=== PATIENT | male | born 1975 | race African-American/Black ===

== ENCOUNTER 2016-04-23 10:06 | Inpatient (IN) | payer OTHER ==
[~2016-04-23] VITALS: Ht 177.8 cm; Wt 94.2 kg
[2016-04-23] VITALS (21 sets, daily range): BP systolic 137–171; BP diastolic 87–108; PULSE 86–127; RESP 16–20; TEMP 97.2–98.8; O2SAT 91–100
[~2016-04-23 10:06] MED LIST: IBUP-238 PO; LORT5TAB PO; Z.0.NO CURRENT MEDS
[2016-04-23] MEDS ORDERED: SODIUM CHLOR 0.9% 1000 ML INJ 1,000 ML IV SCH (10:14)
[2016-04-23] MEDS ORDERED: PROPOFOL 1000 MG/100 ML INJ 100 ML ONE (10:14)
[2016-04-23] MEDS ORDERED: ETOMIDATE 20 MG/10 ML VIAL IV PUSH ONE (10:15)
[2016-04-23] MEDS ORDERED: SODIUM CHLORIDE 0.9% FLUSH 5 ML FLUSH IVF PRN (10:15)
[2016-04-23] MEDS ORDERED: SUCCINYLCHOLINE CHLORIDE 200 MG/10 ML VIAL IV PUSH ONE (10:15)
[2016-04-23 10:33] LABS: AUTOMATED NEUTROPHIL # 8.6 TH/MM3 (1.8-7.7); BASOPHIL % 0.1 % (0.0-2.0); EOSINOPHIL % 0.3 % (0.0-4.0); HEMATOCRIT 51.4 % (39.0-51.0); HEMO FLAGS DIFF FINAL; LYMPH % 19.7 % (9.0-44.0); LYMPHOCYTE # 2.3 TH/MM3 (1.0-4.8); MEAN CELL VOLUME 83.4 FL (80.0-100.0); MEAN CORPUSCULAR HEMOGLOBIN 27.1 PG (27.0-34.0); MEAN CORPUSCULAR HGB CONC 32.5 % (32.0-36.0); MONO % 4.3 % (0.0-8.0); NEUT % 75.6 % (16.0-70.0); PLATELET COUNT 289 TH/MM3 (150-450); RED BLOOD COUNT 6.15 MIL/MM3 (4.50-5.90); RED CELL DISTRIBUTION WIDTH 13.5 % (11.6-17.2); WHITE BLOOD COUNT 11.4 TH/MM3 (4.0-11.0)
--- NOTE | 2016-04-23 10:35 | PD ---
HPI Chief Complaint: unresponsive Time Seen by Provider: 10:14 Travel History International Travel<30 days: No Contact w/Intl Traveler<30days: No Traveled to known affect area: No History of Present Illness HPI 40-year-old male was found by his family members this morning unresponsive. They called 911. When EMS arrived patient's GCS was 3. Patient was given 1 mg of Narcan with no response. As per the family members he was drinking last night. Other than that not much history was obtained. Patient remained unresponsive with a GCS of 3 entire en route. Vital signs were otherwise stable. Patient obviously was in no condition to give any meaningful history. PFSH Past Medical History Narrative Medical Unknown past medical history Social History Alcohol Use: No Tobacco Use: No Substance Use: No Allergies-Medications (Allergen,Severity, Reaction): Coded Allergies: No Known Allergies (Verified , 04/23/16) Comments Unknown Reported Meds & Prescriptions Reported Meds & Active Scripts Active No Active Prescriptions or Reported Medications Narrative Medication Unknown Review of Systems ROS Limitations: Unresponsive Except as stated in HPI: all other systems reviewed are Neg Physical Exam Exam Limitations: Altered Mental Status Narrative GENERAL: Unresponsive, spontaneous respirations, obese SKIN: Warm and dry. HEAD: Atraumatic. Normocephalic. EYES: Pupils equal and round. No scleral icterus. No injection or drainage. ENT: No nasal bleeding or discharge. Mucous membranes pink and moist. Gold caps on multiple teeth NECK: Trachea midline. No JVD. CARDIOVASCULAR: Regular rate and rhythm. No murmur appreciated. RESPIRATORY: No accessory muscle use. Clear to auscultation. Breath sounds equal bilaterally. GASTROINTESTINAL: Abdomen soft, non-tender, nondistended. Hepatic and splenic margins not palpable. MUSCULOSKELETAL: No obvious deformities. No clubbing. No cyanosis. No edema. NEUROLOGICAL: GCS of 3 PSYCHIATRIC: Unable to assess Data Data Last Documented VS Vital Signs Date Time Temp Pulse Resp B/P Pulse Ox O2 Delivery O2 Flow Rate FiO2 04/23/16 11:30 102 20 143/108 99 Ventilator 50 04/23/16 11:21 97.2 Orders Electrocardiogram (04/23/16 ) Propofol 1000 Mg/100 Ml Inj (Diprivan 10 (04/23/16 10:14) Alcohol (Ethanol) (04/23/16 10:14) Complete Blood Count With Diff (04/23/16 10:14) Comprehensive Metabolic Panel (04/23/16 10:14) Creatine Kinase (Cpk) (04/23/16 10:14) Drug Screen, Random Urine (04/23/16 10:14) Prothrombin Time / Inr (Pt) (04/23/16 10:14) Salicylates (Aspirin) (04/23/16 10:14) Troponin I (04/23/16 10:14) Tylenol (Acetaminophen) (04/23/16 10:14) Thyroid Stimulating Hormone (04/23/16 10:14) Lactic Acid Sepsis Protocol (04/23/16 10:14) Urinalysis - C+S If Indicated (04/23/16 10:14) Arterial Blood Gas (Abg) (04/23/16 10:14) Chest, Single Ap (04/23/16 10:14) Ct Brain W/O Iv Contrast(Rout) (04/23/16 10:14) Blood Glucose (04/23/16 10:14) Ecg Monitoring (04/23/16 10:14) Iv Access Insert/Monitor (04/23/16 10:14) Oximetry (04/23/16 10:14) Sodium Chloride 0.9% Flush (Ns Flush) (04/23/16 10:15) Sodium Chlor 0.9% 1000 Ml Inj (Ns 1000 M (04/23/16 10:14) Succinylcholine Inj (Quelicin Inj) (04/23/16 10:15) Etomidate Inj (Amidate Inj) (04/23/16 10:15) Propofol 1000 Mg/100 Ml Inj (Diprivan 10 (04/23/16 10:15) ^ Infusion (04/23/16 10:14) RASS (04/23/16 10:14) Neurological Rass Scale OLIVERIO.Q2H (04/23/16 10:14) ^ Orogastric Tube (04/23/16 10:14) Urinary Catheter Insert/Apply (04/23/16 10:14) CKMB (04/23/16 10:21) CKMB% (04/23/16 10:21) Admit Order (Ed Use Only) (04/23/16 11:40) Labs Laboratory Tests Test 04/23/16 04/23/16 10:21 11:03 White Blood Count 11.4 TH/MM3 Red Blood Count 6.15 MIL/MM3 Hemoglobin 16.7 GM/DL Hematocrit 51.4 % Mean Corpuscular Volume 83.4 FL Mean Corpuscular Hemoglobin 27.1 PG Mean Corpuscular Hemoglobin 32.5 % Concent Red Cell Distribution Width 13.5 % Platelet Count 289 TH/MM3 Mean Platelet Volume 7.7 FL Neutrophils (%) (Auto) 75.6 % Lymphocytes (%) (Auto) 19.7 % Monocytes (%) (Auto) 4.3 % Eosinophils (%) (Auto) 0.3 % Basophils (%) (Auto) 0.1 % Neutrophils # (Auto) 8.6 TH/MM3 Lymphocytes # (Auto) 2.3 TH/MM3 Monocytes # (Auto) 0.5 TH/MM3 Eosinophils # (Auto) 0.0 TH/MM3 Basophils # (Auto) 0.0 TH/MM3 CBC Comment DIFF FINAL Differential Comment Prothrombin Time 10.9 SEC Prothromb Time International 1.0 RATIO Ratio Urine Color COLORLESS Urine Turbidity CLEAR Urine pH 5.0 Urine Specific [place] 1.004 Urine Protein NEG mg/dL Urine Glucose (UA) NEG mg/dL Urine Ketones NEG mg/dL Urine Occult Blood NEG Urine Nitrite NEG Urine Bilirubin NEG Urine Urobilinogen LESS THAN 2.0 MG/DL Urine Leukocyte Esterase NEG Urine WBC LESS THAN 1 /hpf Microscopic Urinalysis Comment CATH-CULT NOT IND Sodium Level 142 MEQ/L Potassium Level 4.5 MEQ/L Chloride Level 107 MEQ/L Carbon Dioxide Level 25.0 MEQ/L Anion Gap 10 MEQ/L Blood Urea Nitrogen 8 MG/DL Creatinine 0.92 MG/DL Estimat Glomerular Filtration 111 ML/MIN Rate Random Glucose 114 MG/DL Lactic Acid Level 4.7 mmol/L Calcium Level 8.3 MG/DL Phosphorus Level 3.7 MG/DL Total Bilirubin 0.2 MG/DL Aspartate Amino Transf 26 U/L (AST/SGOT) Alanine Aminotransferase 36 U/L (ALT/SGPT) Alkaline Phosphatase 55 U/L Total Creatine Kinase 548 U/L Creatine Kinase MB 5.4 NG/ML Creatine Kinase MB % 1.0 % Troponin I LESS THAN 0.02 NG/ML Total Protein 9.4 GM/DL Albumin 3.9 GM/DL Thyroid Stimulating Hormone 0.653 uIU/ML 3rd Gen Salicylates Level 3.1 MG/DL Urine Opiates Screen NEG Acetaminophen Level LESS THAN 2.0 MCG/ML Urine Barbiturates Screen NEG Urine Amphetamines Screen NEG Urine Benzodiazepines Screen NEG Urine Cocaine Screen NEG Urine Cannabinoids Screen POS Ethyl Alcohol Level 356 MG/DL Blood Gas Puncture Site LT RADIAL Blood Gas Patient Temperature 98.6 Blood Gas HCO3 20 mmol/L Blood Gas Base Excess -6.0 mmol/L Blood Gas Oxygen Saturation 96 % Arterial Blood pH 7.25 Arterial Blood Partial 47 mmHg Pressure CO2 Arterial Blood Partial 494 mmHG Pressure O2 Arterial Blood Oxygen Content 24.1 Vol % Arterial Blood 1.5 % Carboxyhemoglobin Arterial Blood Methemoglobin 2.1 % Blood Gas Hemoglobin 17.0 G/DL Oxygen Delivery Device VENTILATOR Blood Gas Ventilator Setting VAC/600/16/PEEP5 Blood Gas Inspired Oxygen 100 % [facility] Medical Decision Making Medical Screen Exam Complete: Yes Emergency Medical Condition: Yes Medical Record Reviewed: Yes Interpretation(s) Twelve-lead EKG was reviewed by me. Normal sinus rhythm, right axis deviation, poor R-wave progression, nonspecific ST-T wave changes, tachycardia. Heart rate of 122 bpm. Differential Diagnosis Acute alcohol intoxication with coma, metabolic encephalopathy, intracranial bleed Narrative Course 11:24 AM I decided to intubate the patient given his poor GCS and hence to protect his airway. During intubation there was a strong alcohol odor from his breath. Patient is hemodynamically stable currently. CT scan of the head is within normal limits. CBC shows slight leukocytosis. Chest x-ray shows the ET tube and OG tube in good position. Blood gas is suggestive of metabolic acidosis. Patient does have a lactic acidosis which in my opinion is possibly from acute alcohol intoxication. Awaiting for the chemistry results. Awaiting for the alcohol level. Patient is to be admitted in the ICU. Awaiting for the auto suspension and steering mechanic to call back. 11:37 AM I just spoke with his family who were in the room. His mother and his 2 sisters are there. They said that they last saw him talking and awake at 12: 30 AM. He was in a green party at the house and had quite a few shots. Patient normally does not drink alcohol. This morning when they went to wake him up he was unarousable. That's when they called 911. I explained to them his condition and answered all their questions to the best of my ability. I spoke with the auto suspension and steering mechanic who has accepted the case. His ABG shows metabolic acidosis. I've asked the respiratory therapist to go up on the vent rate 20. Critical Care Narrative Aggregate critical care time was 45 minutes. Time to perform other separately billable procedures was not included in the critical care time. My time did not include minutes spent treating any other patients simultaneously or on activities that did not directly contribute to the patient's treatment. The services I provided to this patient were to treat and/or prevent clinically significant deterioration that could result in: Unresponsive, respiratory failure, ventilator management I provided critical care services requiring my management, as noted below: Chart data review, documentation time, medication orders and management, vital sign assessments/reviewing monitor data, ordering and reviewing lab tests, ordering and interpreting/reviewing x-rays and diagnostic studies, care of the patient and discussion of the patient with the admitting physicians. Procedures Procedure Narrative After the risks and benefits were discussed the following procedure was performed: INTUBATION: The patient was put in optimal position for the procedure. Rapid sequence intubation was initiated by me using 20 milligrams of etomidate IV and 100 milligrams of succinylcholine IV. The patient was intubated with a 7.5 cuffed endotracheal tube. Tube placement was confirmed by visualization of the tube and balloon passing through the cords, capnometry and subsequent chest x-ray. Breath sounds were equal and well aerated bilaterally postintubation. No breath sounds over stomach. Patient tolerated procedure well. EKG Prior to Arrival: No Physician Communication Physician Communication Dr. Walter Diagnosis Primary Impression: Unresponsive Additional Impressions: Acute alcohol intoxication Qualified Code: F10.129 - Acute alcohol intoxication, with unspecified complication Metabolic acidosis Respiratory failure Qualified Code: J96.01 - Acute respiratory failure with hypoxia Admitting Information Admitting Physician Requests: Admit Scripts No Active Prescriptions or Reported Rodericks Mekhi Amezquita MD Apr 23, 2016 10:14
[2016-04-23 10:38] LABS: BLOOD, URINE NEG (NEG); COMMENT (UR) CATH-CULT NOT IND; CULTURE IF INDICATED CATH CULTURE NOT IND; GLUCOSE,URINE NEG (NEG); KETONE, URINE NEG (NEG); NITRITE,URINE NEG (NEG); URINE COLOR COLORLESS (YELLW/STRAW)
[2016-04-23 10:46] LABS: AMPHETAMINE, URINE NEG (NEG); BARBITURATES, URINE NEG (NEG); COCAINE, URINE NEG (NEG); PROTHROMBIN TIME - PATIENT 10.9 SEC (9.8-11.6)
[2016-04-23] MEDS: PROPOFOL 1000 MG/100 ML INJ 100 ML IV SCH ×2 (10:54→21:19)
--- NOTE | 2016-04-23 10:58 | RADRPT ---
EXAM DATE/TIME: 04/23/2016 10:44 [facility] COMPARISON: No previous studies available for comparison. INDICATIONS : Altered mental status, unresposnsive today. RADIATION DOSE: 39.54 CTDIvol (mGy) MEDICAL HISTORY : None SURGICAL HISTORY : None. ENCOUNTER: Initial ACUITY: 1 day PAIN SCALE: Non-responsive LOCATION: Bilateral head TECHNIQUE: Multiple contiguous axial images were obtained of the head. Using automated exposure control and adj ustment of the mA and/or kV according to patient size, radiation dose was kept as low as reasonably a chievable to obtain optimal diagnostic quality images. FINDINGS: CEREBRUM: The ventricles are normal for age. No evidence of midline shift, mass lesion, hemorrhage or acute in farction. No extra-axial fluid collections are seen. POSTERIOR FOSSA: The cerebellum and brainstem are intact. The 4th ventricle is midline. The cerebellopontine angle i s unremarkable. EXTRACRANIAL: The visualized portion of the orbits is intact. Chronic sinus disease with mucoperiosteal thickening in the ethmoid air cells and a few retention cysts in the maxillary antra bilaterally. SKULL: The calvaria is intact. No evidence of skull fracture. CONCLUSION: 1. Chronic sinusitis. 2. Otherwise, no acute intracranial process. Conor Vidal MD on April 23, 2016 at 10:54 Board Certified Radiologist. This report was verified electronically.
[2016-04-23 11:12] LABS: ALKALINE PHOSPHATASE 55 U/L (45-117); ALT (GPT) 36 U/L (12-78); ANION GAP 10 MEQ/L (5-15); AST (GOT) 26 U/L (15-37); BLOOD UREA NITROGEN 8 MG/DL (7-18); CHLORIDE 107 MEQ/L (98-107); CREATINE KINASE 548 U/L (39-308); GLOMERULAR FILTRATION RATE 111 ML/MIN (>89); POTASSIUM 4.5 MEQ/L (3.5-5.1); SODIUM (NA) 142 MEQ/L (136-145); TOTAL BILIRUBIN ADULT 0.2 MG/DL (0.2-1.0)
[2016-04-23 11:13] LABS: ACETAMINOPHEN LESS THAN 2.0 MCG/ML (10.0-30.0)
[2016-04-23 11:14] LABS: BLOOD GAS CARBOXYHEMOGLOBIN 1.5 % (0-4); BLOOD GAS HCO3 20 mmol/L (22-26); BLOOD GAS METHEMOGLOBIN 2.1 % (0-2); BLOOD GAS O2 HGB SATURATION 96 % (90-100); BLOOD GAS OXYGEN CONTENT 24.1 Vol % (12.0-20.0); BLOOD GAS PCO2 47 mmHg (38-42); BLOOD GAS PO2 494 mmHG (61-120); CRITICAL VALUE YES; DRAW SITE LT RADIAL; FIO2 100 %; NUMBER OF ARTERIAL PUNCTURES 1; OXYGEN DEVICE VENTILATOR; TEMP CORR TO 98.6; ULNAR PULSE PRESENT; VENT SETTINGS VAC/600/16/PEEP5
[2016-04-23 11:15] LABS: STAT YES
[2016-04-23 11:43] LABS: CKMB 5.4 NG/ML (0.5-3.6)
--- NOTE | 2016-04-23 11:44 | RADRPT ---
EXAM DATE/TIME: 04/23/2016 11:03 [facility] COMPARISON: No previous studies available for comparison. INDICATIONS: Short of breath, syncope, unresponsive MEDICAL HISTORY: None. SURGICAL HISTORY: None. ENCOUNTER: Initial ACUITY: 1 day PAIN SCORE: Non-responsive. LOCATION: Bilateral chest FINDINGS: ET tube, nasogastric tube are in good position. Lungs are clear. Heart and pulmonary vascularity ar e normal. The portion of the bony skeleton visualized is unremarkable. CONCLUSION: 1. Support apparatus in good position. 2. Lungs are clear. Paddy Goldstein MD FACR on April 23, 2016 at 11:32 Board Certified Radiologist. This report was verified electronically.
[2016-04-23 12:27] LABS: LACTIC ACID GHOST NOT REPORTABLE
[2016-04-23] MEDS ORDERED: POTASSIUM CL 40 MEQ/30 ML LIQ UDC PO/TUBE PRN ×2 (13:00)
[2016-04-23] MEDS ORDERED: MAGNESIUM SULFATE INJ 4 GM in SODIUM CHLORIDE 0.9% INJ 92 ML IV PRN (13:00)
[2016-04-23] MEDS ORDERED: MISCELLANEOUS NURSING INFORMATION XX SCH (13:00)
[2016-04-23] MEDS ORDERED: MAGNESIUM OXIDE 400 MG TAB PO PRN (13:00)
[2016-04-23] MEDS ORDERED: POTASSIUM CHLOR 40 MEQ PREMIX 100 ML IV PRN ×2 (13:00)
[2016-04-23] MEDS ORDERED: MAGNESIUM SULFATE INJ 2 GM in SODIUM CHLORIDE 0.9% INJ 96 ML IV PRN (13:00)
[2016-04-23] MEDS ORDERED: POTASSIUM PHOSPHATE INJ 30 MMOL in SODIUM CHLOR 0.9% 250 ML INJ 250 ML IV PRN (13:00)
[2016-04-23] MEDS ORDERED: POTASSIUM CHLOR 20 MEQ PREMIX 100 ML IV PRN ×2 (13:00)
[2016-04-23] MEDS ORDERED: CHLORHEXIDINE GLUCONATE 2 % 1 PACK (2 CLOTHS) TOP PRN (13:00)
[2016-04-23] MEDS ORDERED: SODIUM PHOSPHATE INJ 30 MMOL in SODIUM CHLOR 0.9% 250 ML INJ 240 ML IV PRN (13:00)
[2016-04-23] MEDS ORDERED: POTASSIUM PHOSPHATE MONOBASIC 500 MG TAB PO/TUBE PRN (13:00)
[2016-04-23] MEDS ORDERED: POTASSIUM PHOSPHATE MONOBASIC 500 MG TAB PO PRN (13:00)
[2016-04-23] MEDS ORDERED: ENOXAPARIN SODIUM 40 MG/0.4 ML SYRINGE SQ SCH (14:00)
[2016-04-23] MEDS ORDERED: DEXTROSE 50% IN WATER 50 ML VIAL(D50) IV PUSH PRN (14:15)
[2016-04-23] MEDS: INSULIN NovoLIN REGULAR SUPPLEMENTAL SCALE SQ SCH ×2 (14:15→20:15)
[2016-04-23] MEDS ORDERED: GLUCAGON 1 MG/ML VIAL OTHER PRN (14:15)
--- NOTE | 2016-04-23 14:28 | MH ---
cc: BIJAL HERNANDEZ M.D. DATE OF ADMISSION: 04/23/2016 DATE OF : 1975 HISTORY OF PRESENT ILLNESS The patient is a 40-year-old male without significant past medical history who was brought into [facility] ED after he was found by his family members this morning unresponsive. They called 911 and upon arrival of EMS the patient had a GCS score of 3. He was subsequently given Narcan 1 mg without any response. In the ED he was intubated with etomidate, succinylcholine and placed on full mechanical ventilation. In addition, he will he was started on a Diprivan infusion for sedation. His laboratory data is significant for lactic acidosis with lactic acid level of 4.7 at 10:20 which increased to 5.2 at 12:30. ABG post intubation showed a pH of 7.25, CO2 47, PAO2 of 494, bicarb 20, saturation of 96% on assist control ventilation with tidal volume 600, respiratory rate 16, PEEP of 5, 100% FIO2. His urine toxicology screen positive for cannabinoids and he was found to have elevated alcohol level at 356. CT scan of the brain was obtained which showed chronic sinusitis, otherwise no acute intracranial process. Chest x-ray post intubation showed ET tube above the cecilio with no obvious cardiopulmonary disease identified. The patient received one liter bolus of normal saline in the ED. His current blood pressure is 146/93 with a pulse of 90. According to his daughter the patient just came back from [place] driving and during his trip he was complaining of shortness of breath. PAST MEDICAL HISTORY Unremarkable. PAST SURGICAL HISTORY Unremarkable. ALLERGIES No known drug allergies. SOCIAL HISTORY The patient is an active smoker. Normally he is a non-drinker, however, he had a binge drinking episode yesterday. MEDICATIONS AT HOME None. REVIEW OF SYSTEMS As per HPI. The rest of the review of systems is unobtainable as the patient is intubated. PHYSICAL EXAMINATION GENERAL: A 40-year-old male intubated. VITAL SIGNS: Temperature 97.2, pulse 90, respiratory rate 20, blood pressure 146/93, saturation 99-100%. Vent setting assist control, rate of 20, tidal volume 600, PEEP of 5, FIO2 50%. HEENT: Atraumatic, normocephalic. Pupils equal, round and reactive to light and accommodation. Excellent muscles are intact. Conjunctiva pink. Non-icteric sclera. Oral mucosa within normal. NECK: Supple. No JVD, adenopathy or thyromegaly. Trachea in the midline. CARDIOVASCULAR: Regular rate and rhythm. Normal S1, S2. No murmurs, rubs or gallops noted. PULMONARY: Bilateral equal entry. No rales or wheezing. ABDOMEN: Soft, nontender, no distension. Positive bowel sounds. EXTREMITIES: No clubbing, cyanosis or edema. NEUROLOGIC: Intubated and sedated with Diprivan. LABORATORY DATA Sodium 142, potassium 4.5, chloride 107, CO2 25, BUN 8, creatinine 0.92, glucose 140, lactic acid 4.7 repeat 5.2. WBC 11.4, hemoglobin 16.7, hematocrit 51, platelet count 289. Troponin less than 0.02. RADIOGRAPHIC STUDIES Chest x-ray showed ET tube above the cecilio. No evidence of any acute cardiopulmonary disease. CT scan of the brain showed chronic sinusitis without any acute intracranial process. IMPRESSION 1. Vent dependent respiratory failure. 2. Altered mental status. 3. ETOH intoxication. 4. Lactic acidemia. 5. Elevated CKs. 6. Urine drug screen positive for cannabinoids. PLAN/RECOMMENDATIONS 1. Continue with Diprivan infusion for sedation, and daily sedation vacation. Monitor neuro status closely per protocol. Place on thiamine, multivitamins and folic acid. 2. Watch for signs of DTs. CT scan of the brain in the ED negative for acute intracranial process. 3. Continue with vent support and maintain sats above 92%. 4. Bronchodilators in the form of DuoNeb q.6h. 5. Will proceed with CT angiogram of the chest to rule out PE. 6. Monitor heart rate and blood pressure closely and maintain MAP greater than 65 mmHg. 7. Serial lactic acid monitoring. 8. The patient was given one liter bolus of normal saline in the ED. Will give an additional normal saline bolus one liter and place on maintenance fluids at D5 NS at 100 mL an hour. Monitor cardiac enzymes with troponins. 9. Monitor renal function, I's and O's, and electrolyte replacement per protocol. IV fluids as stated above. 10.Keep n.p.o. for now and place on Protonix 40 mg IV daily for GI prophylaxis. 11.Will proceed with CT abdomen and pelvis to rule out acute abdominal process given lactic acidosis. 12.Monitor for signs of infections which include fever and WBC. Will hold off on any antibiotics at this time as there is no evidence of any infectious process. Urinalysis in the ER negative for UTI and chest x-ray post-intubation showed no acute cardiopulmonary disease. 13.Place on sliding scale insulin if needed for glycemic control. 14.GI prophylaxis with Protonix 40 mg daily, and DVT prophylaxis with SCDs and Lovenox 40 mg subcu daily. 15.Further recommendations will be based on hospital course. Critical care time 50 minutes excluding procedures. MD KWAIS Herron/OMER /1:55 PM /2:11 PM
[2016-04-23] MEDS: MULTIVITAMIN TAB PO SCH (14:49)
[2016-04-23] MEDS: DEXT 5%-NACL 0.9% 1000 ML INJ 1,000 ML IV SCH (14:49)
[2016-04-23] MEDS: THIAMINE HCL 100 MG TAB PO SCH (14:49)
[2016-04-23] MEDS: FOLIC ACID 1 MG TAB PO SCH (14:49)
[2016-04-23] MEDS: PANTOPRAZOLE SODIUM 40 MG VIAL IV SCH (14:50)
[2016-04-23] MEDS ORDERED: IOHEXOL 350 MG/ML 10 ML VIAL (for RAD DIAG) IV ONE (15:49)
[2016-04-23] MEDS: RESP: ALBUTEROL 2.5 MG/IPRATROPIUM 0.5 MG NEB (SCH) INH ×2 (15:57→20:56)
--- NOTE | 2016-04-23 16:10 | RADRPT ---
EXAM DATE/TIME: 04/23/2016 15:34 [facility] COMPARISON: No previous studies available for comparison. INDICATIONS : Evaluate for pulmonary embolism. IV CONTRAST: 76 cc Omnipaque 350 (iohexol) IV ; Cumulative dose for multiple exams. RADIATION DOSE: 18.07 CTDIvol (mGy) MEDICAL HISTORY : Non-responsive. SURGICAL HISTORY : Non-responsive. ENCOUNTER: Initial ACUITY: 1 day PAIN SCALE: Non-responsive LOCATION: Bilateral chest TECHNIQUE: Volumetric scanning of the chest was performed using a pulmonary embolism protocol MIP images were re constructed. Using automated exposure control and adjustment of the mA and/or kV according to patien t size, radiation dose was kept as low as reasonably achievable to obtain optimal diagnostic quality images. FINDINGS: There are acute pulmonary emboli involving the right upper lobe posterior segment branches and the le ft lower lobe branches. No pulmonary infarction is noted. No pleural effusion is noted. The heart is enlarged. No mediastinal, hilar or axillary lymphadenopathy is noted. No pulmonary nodule or mass is noted. No alveolar or interstitial infiltrate is noted. There is a small 15 mm right renal cyst . A nasogastric tube has its tip in the distal stomach or proximal duodenum. CONCLUSION: 1. Acute pulmonary emboli within the right upper lobe posterior segmental branches and left lower lob e branches. 2. Cardiomegaly. Breezy Olivas MD on April 23, 2016 at 15:54 Board Certified Radiologist. This report was verified electronically.
--- NOTE | 2016-04-23 16:17 | RADRPT ---
EXAM DATE/TIME: 04/23/2016 15:34 [facility] COMPARISON: No previous studies available for comparison. INDICATIONS : Evaluate for lactic acidosis IV CONTRAST: 76 cc Omnipaque 350 (iohexol) IV ; Cumulative dose for multiple exams. ORAL CONTRAST: No oral contrast ingested. RADIATION DOSE: 16.26 CTDIvol (mGy) MEDICAL HISTORY : Non-responsive. SURGICAL HISTORY : Non-responsive. ENCOUNTER: Initial ACUITY: 1 day PAIN SCALE: Non-responsive LOCATION: Bilateral adomen TECHNIQUE: Volumetric scanning of the abdomen and pelvis was performed. Using automated exposure control and ad justment of the mA and/or kV according to patient size, radiation dose was kept as low as reasonably achievable to obtain optimal diagnostic quality images. FINDINGS: LOWER LUNGS: The visualized lower lungs are clear. LIVER: There is mild diffuse fatty infiltration without focal lesion.. There is no dilation of the biliary tree. No calcified gallstones. SPLEEN: Normal size without lesion. PANCREAS: Within normal limits. KIDNEYS: Normal in size and shape. Bilateral small renal cysts are noted. There is no solid mass, stone or hy dronephrosis. ADRENAL GLANDS: Within normal limits. VASCULAR: There is no aortic aneurysm. BOWEL/MESENTERY: A nasogastric tube has its tip in the distal stomach/proximal duodenum. The stomach, small bowel, and colon demonstrate no acute abnormality. There is no free intraperitoneal air or fluid. The appendix is normal. ABDOMINAL WALL: Within normal limits. RETROPERITONEUM: There is no lymphadenopathy. BLADDER: The urinary bladder is nondistended and contains a Gamboa catheter. REPRODUCTIVE: The prostate gland is enlarged. INGUINAL: There is no lymphadenopathy or hernia. MUSCULOSKELETAL: Degenerative changes and scoliosis of the thoracolumbar spine are noted. CONCLUSION: 1. Fatty liver. 2. Bilateral renal cysts. 3. Enlarged prostate. 4. Degenerative changes and scoliosis of the thoracolumbar spine. Breezy Olivas MD on April 23, 2016 at 16:12 Board Certified Radiologist. This report was verified electronically.
[2016-04-23 18:27] LABS: HEMATOCRIT 48.6 % (39.0-51.0); MEAN CELL VOLUME 85.4 FL (80.0-100.0); MEAN CORPUSCULAR HEMOGLOBIN 27.7 PG (27.0-34.0); MEAN CORPUSCULAR HGB CONC 32.5 % (32.0-36.0); PLATELET COUNT 261 TH/MM3 (150-450); RED BLOOD COUNT 5.69 MIL/MM3 (4.50-5.90); RED CELL DISTRIBUTION WIDTH 13.5 % (11.6-17.2); REVIEW FLAG FINAL
[2016-04-23 18:35] LABS: APTT (PATIENT) 27.9 SEC (24.3-30.1); PROTHROMBIN TIME - PATIENT 10.7 SEC (9.8-11.6)
[2016-04-23] MEDS ORDERED: HEPARIN SODIUM - IV 10,000 UNITS/10 ML VIAL ONE (18:49)
--- NOTE | 2016-04-23 20:18 | RADRPT ---
EXAM DATE/TIME: 04/23/2016 18:33 [facility] COMPARISON: No previous studies available for comparison. INDICATIONS : Rule-out DVT. MEDICAL HISTORY : Unknown medical history. SURGICAL HISTORY : Unknown surgical history. ENCOUNTER: Initial ACUITY: 1 day PAIN SCORE: Non-responsive LOCATION: Bilateral legs TECHNIQUE: Venous ultrasound of the left and right leg was performed from the inguinal ligament to the proximal calf. Real-time, color Doppler and spectral tracing, compression and augmentation techniques were us ed. FINDINGS: RIGHT LEG: There is normal compressibility of the deep venous system from the inguinal region to the proximal ca lf. No echogenic clot is seen in the lumen of the common femoral, femoral, popliteal, and posterior tibial veins. There is a normal response of the venous system to proximal and distal augmentation an d respiration. LEFT LEG: There is normal compressibility of the deep venous system from the inguinal region to the proximal ca lf. No echogenic clot is seen in the lumen of the common femoral, femoral, popliteal, and posterior tibial veins. There is a normal response of the venous system to proximal and distal augmentation an d respiration. CONCLUSION: Normal examination. Lázaro Renae MD on April 23, 2016 at 20:16 Board Certified Radiologist. This report was verified electronically.
[2016-04-23] MEDS: HEPARIN-D5W INJ 250 ML IV SCH (22:15)
[2016-04-23] MEDS ORDERED: HEPARIN SODIUM - IV 10,000 UNITS/10 ML VIAL IV PRN ×2 (23:00)
[2016-04-24] VITALS (16 sets, daily range): BP systolic 106–147; BP diastolic 63–103; PULSE 86–135; RESP 18–20; TEMP 98.4–99.8; O2SAT 94–100
[2016-04-24] MEDS: DEXT 5%-NACL 0.9% 1000 ML INJ 1,000 ML IV SCH ×3 (00:58→20:13)
[2016-04-24] MEDS: INSULIN NovoLIN REGULAR SUPPLEMENTAL SCALE SQ SCH ×4 (02:15→20:15)
[2016-04-24 02:33] LABS: AUTOMATED NEUTROPHIL # 8.5 TH/MM3 (1.8-7.7); BASOPHIL % 0.3 % (0.0-2.0); EOSINOPHIL % 0.2 % (0.0-4.0); HEMATOCRIT 45.6 % (39.0-51.0); HEMO FLAGS DIFF FINAL; LYMPH % 19.8 % (9.0-44.0); LYMPHOCYTE # 2.3 TH/MM3 (1.0-4.8); MEAN CELL VOLUME 82.9 FL (80.0-100.0); MEAN CORPUSCULAR HEMOGLOBIN 26.7 PG (27.0-34.0); MEAN CORPUSCULAR HGB CONC 32.3 % (32.0-36.0); MONO % 6.8 % (0.0-8.0); NEUT % 72.9 % (16.0-70.0); PLATELET COUNT 264 TH/MM3 (150-450); RED BLOOD COUNT 5.51 MIL/MM3 (4.50-5.90); RED CELL DISTRIBUTION WIDTH 13.3 % (11.6-17.2); WHITE BLOOD COUNT 11.7 TH/MM3 (4.0-11.0)
[2016-04-24 02:42] LABS: APTT (PATIENT) 61.8 SEC (24.3-30.1)
[2016-04-24 02:52] LABS: MAGNESIUM 1.8 MG/DL (1.5-2.5); POTASSIUM 3.5 MEQ/L (3.5-5.1)
[2016-04-24] MEDS: RESP: ALBUTEROL 2.5 MG/IPRATROPIUM 0.5 MG NEB (SCH) INH ×4 (03:19→20:26)
[2016-04-24] MEDS: CHLORHEXIDINE GLUCONATE 2 % 1 PACK (2 CLOTHS) TOP SCH (04:00)
[2016-04-24] MEDS: HEPARIN-D5W INJ 250 ML IV SCH ×2 (06:31→20:16)
[2016-04-24] MEDS: PROPOFOL 1000 MG/100 ML INJ 100 ML IV SCH ×5 (06:32→20:12)
[2016-04-24 08:23] LABS: APTT (PATIENT) 65.8 SEC (24.3-30.1)
[2016-04-24] MEDS ORDERED: hydrALAZINE HCL 20 MG/ML VIAL ONE (08:49)
[2016-04-24] MEDS: MULTIVITAMIN TAB PO SCH (08:53)
[2016-04-24] MEDS: PANTOPRAZOLE SODIUM 40 MG VIAL IV SCH (08:53)
[2016-04-24] MEDS: THIAMINE HCL 100 MG TAB PO SCH (08:53)
[2016-04-24] MEDS: FOLIC ACID 1 MG TAB PO SCH (08:53)
[2016-04-24] MEDS ORDERED: DILTIAZEM HCL 25 MG/5 ML VIAL ONE (09:34)
[2016-04-24] MEDS ORDERED: DILTIAZEM HCL 25 MG/5 ML VIAL IV ONE (09:45)
--- NOTE | 2016-04-24 10:06 | HHI.CCPN ---
Subjective Remarks/Hospital Course The patient is a 40-year-old male without significant past medical history who was brought into [facility] ED after he was found by his family members this morning unresponsive. They called 911 and upon arrival of EMS the patient had a GCS score of 3. He was subsequently given Narcan 1 mg without any response. In the ED he was intubated with etomidate, succinylcholine and placed on full mechanical ventilation. In addition, he will he was started on a Diprivan infusion for sedation. His laboratory data is significant for lactic acidosis with lactic acid level of 4.7 at 10:20 which increased to 5.2 at 12:30. ABG post intubation showed a pH of 7.25, CO2 47, PAO2 of 494, bicarb 20, saturation of 96% on assist control ventilation with tidal volume 600, respiratory rate 16, PEEP of 5, 100% FIO2. His urine toxicology screen positive for cannabinoids and he was found to have elevated alcohol level at 356. CT scan of the brain was obtained which showed chronic sinusitis, otherwise no acute intracranial process. Chest x-ray post intubation showed ET tube above the cecilio with no obvious cardiopulmonary disease identified. The patient received one liter bolus of normal saline in the ED. His current blood pressure is 146/93 with a pulse of 90. According to his daughter the patient just came back from [place] driving and during his trip he was complaining of shortness of breath. 04/24 Patient is sedated with Diprivan and intubated. CTA chest yesterday showed PE RUL and LLL started on Heparin drip. Afebrile. Objective Vital Signs Date Time Temp Pulse Resp B/P Pulse Ox O2 Delivery O2 Flow Rate FiO2 04/24/16 08:00 119 04/24/16 08:00 96 40 04/24/16 04:00 99.4 20 144/99 04/23/16 15:32 Ventilator Intake and Output 04/23/16 04/23/16 04/24/16 08:00 16:00 00:00 Intake Total 697 ml Output Total 900 ml 725 ml Balance -900 ml -28 ml Result Diagram: 04/24/1622004/24/16220 Other Results Laboratory Tests Test 04/23/16 04/23/16 04/23/16 04/23/16 10:21 11:03 12:30 16:55 White Blood Count 11.4 TH/MM3 Red Blood Count 6.15 MIL/MM3 Hemoglobin 16.7 GM/DL Hematocrit 51.4 % Mean Corpuscular Volume 83.4 FL Mean Corpuscular Hemoglobin 27.1 PG Mean Corpuscular Hemoglobin 32.5 % Concent Red Cell Distribution Width 13.5 % Platelet Count 289 TH/MM3 Mean Platelet Volume 7.7 FL Neutrophils (%) (Auto) 75.6 % Lymphocytes (%) (Auto) 19.7 % Monocytes (%) (Auto) 4.3 % Eosinophils (%) (Auto) 0.3 % Basophils (%) (Auto) 0.1 % Neutrophils # (Auto) 8.6 TH/MM3 Lymphocytes # (Auto) 2.3 TH/MM3 Monocytes # (Auto) 0.5 TH/MM3 Eosinophils # (Auto) 0.0 TH/MM3 Basophils # (Auto) 0.0 TH/MM3 CBC Comment DIFF FINAL Differential Comment Prothrombin Time 10.9 SEC Prothromb Time International 1.0 RATIO Ratio Urine Color COLORLESS Urine Turbidity CLEAR Urine pH 5.0 Urine Specific [place] 1.004 Urine Protein NEG mg/dL Urine Glucose (UA) NEG mg/dL Urine Ketones NEG mg/dL Urine Occult Blood NEG Urine Nitrite NEG Urine Bilirubin NEG Urine Urobilinogen LESS THAN 2.0 MG/DL Urine Leukocyte Esterase NEG Urine WBC LESS THAN 1 /hpf Microscopic Urinalysis Comment CATH-CULT NOT IND Sodium Level 142 MEQ/L Potassium Level 4.5 MEQ/L Chloride Level 107 MEQ/L Carbon Dioxide Level 25.0 MEQ/L Anion Gap 10 MEQ/L Blood Urea Nitrogen 8 MG/DL Creatinine 0.92 MG/DL Estimat Glomerular Filtration 111 ML/MIN Rate Random Glucose 114 MG/DL Lactic Acid Level 4.7 mmol/L 5.2 mmol/L Calcium Level 8.3 MG/DL Phosphorus Level 3.7 MG/DL Total Bilirubin 0.2 MG/DL Aspartate Amino Transf 26 U/L (AST/SGOT) Alanine Aminotransferase 36 U/L (ALT/SGPT) Alkaline Phosphatase 55 U/L Total Creatine Kinase 548 U/L Creatine Kinase MB 5.4 NG/ML Creatine Kinase MB % 1.0 % Troponin I LESS THAN 0.02 NG/ML Total Protein 9.4 GM/DL Albumin 3.9 GM/DL Thyroid Stimulating Hormone 0.653 uIU/ML 3rd Gen Salicylates Level 3.1 MG/DL Urine Opiates Screen NEG Acetaminophen Level LESS THAN 2.0 MCG/ML Urine Barbiturates Screen NEG Urine Amphetamines Screen NEG Urine Benzodiazepines Screen NEG Urine Cocaine Screen NEG Urine Cannabinoids Screen POS Ethyl Alcohol Level 356 MG/DL Blood Gas Puncture Site LT RADIAL Blood Gas Patient Temperature 98.6 Blood Gas HCO3 20 mmol/L Blood Gas Base Excess -6.0 mmol/L Blood Gas Oxygen Saturation 96 % Arterial Blood pH 7.25 Arterial Blood Partial 47 mmHg Pressure CO2 Arterial Blood Partial 494 mmHG Pressure O2 Arterial Blood Oxygen Content 24.1 Vol % Arterial Blood 1.5 % Carboxyhemoglobin Arterial Blood Methemoglobin 2.1 % Blood Gas Hemoglobin 17.0 G/DL Oxygen Delivery Device VENTILATOR Blood Gas Ventilator Setting VAC/600/16/PEEP5 Blood Gas Inspired Oxygen 100 % Nasal Screen MRSA (PCR) NEGATIVE Test 04/23/16 04/23/16 04/24/16 04/24/16 17:35 20:40 02:21 08:04 White Blood Count 12.0 TH/MM3 11.7 TH/MM3 Red Blood Count 5.69 MIL/MM3 5.51 MIL/MM3 Hemoglobin 15.8 GM/DL 14.7 GM/DL Hematocrit 48.6 % 45.6 % Mean Corpuscular Volume 85.4 FL 82.9 FL Mean Corpuscular Hemoglobin 27.7 PG 26.7 PG Mean Corpuscular Hemoglobin 32.5 % 32.3 % Concent Red Cell Distribution Width 13.5 % 13.3 % Platelet Count 261 TH/MM3 264 TH/MM3 Mean Platelet Volume 8.0 FL 7.6 FL Prothrombin Time 10.7 SEC Prothromb Time International 1.0 RATIO Ratio Activated Partial 27.9 SEC 61.8 SEC 65.8 SEC Thromboplast Time Lactic Acid Level 4.2 mmol/L 3.4 mmol/L Neutrophils (%) (Auto) 72.9 % Lymphocytes (%) (Auto) 19.8 % Monocytes (%) (Auto) 6.8 % Eosinophils (%) (Auto) 0.2 % Basophils (%) (Auto) 0.3 % Neutrophils # (Auto) 8.5 TH/MM3 Lymphocytes # (Auto) 2.3 TH/MM3 Monocytes # (Auto) 0.8 TH/MM3 Eosinophils # (Auto) 0.0 TH/MM3 Basophils # (Auto) 0.0 TH/MM3 CBC Comment DIFF FINAL Differential Comment Sodium Level 144 MEQ/L Potassium Level 3.5 MEQ/L Chloride Level 111 MEQ/L Carbon Dioxide Level 22.0 MEQ/L Anion Gap 11 MEQ/L Blood Urea Nitrogen 11 MG/DL Creatinine 0.73 MG/DL Estimat Glomerular Filtration 145 ML/MIN Rate Random Glucose 102 MG/DL Calcium Level 7.9 MG/DL Phosphorus Level 2.7 MG/DL Magnesium Level 1.8 MG/DL Imaging Last Impressions Head CT 04/23/16 1014 Signed Impressions: Service Date/Time: Saturday, April 23, 2016 10:44 - CONCLUSION: 1. Chronic sinusitis. 2. Otherwise, no acute intracranial process. Conor Vidal MD Chest X-Ray 04/23/16 1014 Signed Impressions: Service Date/Time: Saturday, April 23, 2016 11:03 - CONCLUSION: 1. Support apparatus in good position. 2. Lungs are clear. Paddy Goldstein MD FACR Lower Extremity Ultrasound 04/23/16 0000 Signed Impressions: Service Date/Time: Saturday, April 23, 2016 18:33 - CONCLUSION: Normal examination. Lázaro Renae MD CT Angiography 04/23/16 0000 Signed Impressions: Service Date/Time: Saturday, April 23, 2016 15:34 - CONCLUSION: 1. Acute pulmonary emboli within the right upper lobe posterior segmental branches and left lower lobe branches. 2. Cardiomegaly. Breezy Olivas MD Abdomen/Pelvis CT 04/23/16 0000 Signed Impressions: Service Date/Time: Saturday, April 23, 2016 15:34 - CONCLUSION: 1. Fatty liver. 2. Bilateral renal cysts. 3. Enlarged prostate. 4. Degenerative changes and scoliosis of the thoracolumbar spine. Breezy Olivas MD Objective Remarks GENERAL: PAtient is 40 yo intubated and sedated. SKIN: Warm and dry. HEAD: Normocephalic. EYES: No scleral icterus. No injection or drainage. NECK: Supple, trachea midline. No JVD or lymphadenopathy. CARDIOVASCULAR: Tachycardic without murmurs, gallops, or rubs. RESPIRATORY: Breath sounds equal bilaterally. No accessory muscle use. GASTROINTESTINAL: Abdomen soft, non-tender, nondistended. MUSCULOSKELETAL: No cyanosis, or edema. Neuro: Sedated A/P Assessment and Plan 1. Vent dependent respiratory failure. 2. Acute PE 3. ETOH intoxication. 4. Lactic acidemia..trending down 5. Elevated CKs. 6. Urine drug screen positive for cannabinoids. Plan Neuro:On Diprivan infusion for sedation and Fentanyl infusion and daily sedation vacation as any. Monitor neuro status closely per protocol. On thiamine, multivitamins and folic acid. CT brain negative for acute intracranial process. Pulm: Continue with vent support and maintain sats > 92%. Bronchodilators, ICU vent bundle, start SBT daily as any. Continue with heparin drip per PE protocol. CV: Place on Cardizem 60mng QID, Monitor HR and BP and maintain MAP> 65 mmHg. Serial lactic acid monitoring ( trending down) Check echo to eval LV function, r/o RV strain : Monitor renal function, I's and O's, and electrolyte replacement per protocol. Continue IVF D5NS@100ml/hr GI: On Protonix 40 mg IV daily for GI prophylaxis. Start TF today if remains intubated. Heme: Monitor CBC, coags, on heparin drip. ID: Monitor for signs of infections( fever and WBC). UA in the ED negative for UTI and chest x-ray post-intubation showed no acute cardiopulmonary disease. Endo: Place on sliding scale insulin if needed for glycemic control. GI prophylaxis with Protonix 40 mg daily and DVT prophylaxis- on heparin drip. Doppler US LE negative for DVT CCT 30 mins Adilson Khan MD Apr 24, 2016 10:05
[2016-04-24] MEDS: fentaNYL DRIP 250 ML IV SCH ×2 (10:15→18:35)
[2016-04-24 10:33] LABS: BLOOD GAS BASE EXCESS 1.5 mmol/L (-2-2); BLOOD GAS CARBOXYHEMOGLOBIN 0.9 % (0-4); BLOOD GAS HCO3 25 mmol/L (22-26); BLOOD GAS METHEMOGLOBIN 1.2 % (0-2); BLOOD GAS O2 HGB SATURATION 95 % (90-100); BLOOD GAS OXYGEN CONTENT 21.2 Vol % (12.0-20.0); BLOOD GAS PCO2 34 mmHg (38-42); BLOOD GAS PO2 91 mmHg (61-120); BLOOD GAS TOTAL HGB 15.8 G/DL (12.0-16.0); CRITICAL VALUE NO; OXYGEN DEVICE VENTILATOR; TEMP CORR TO 98.6
[2016-04-24 10:34] LABS: DRAW SITE RT RADIAL; FIO2 40 %; NUMBER OF ARTERIAL PUNCTURES 1; STAT NO; ULNAR PULSE PRESENT; VENT SETTINGS AC20/600/PEEP5
[2016-04-24] MEDS: DILTIAZEM HCL 60 MG TAB PO SCH ×3 (12:38→20:59)
--- NOTE | 2016-04-24 20:02 | EC ---
Study Study Date:04/24/2016 STUDY CONCLUSIONS SUMMARY - Left ventricle: The cavity size was normal. Systolic function was normal. The estimated ejection fraction was in the range of 55% to 60%. Wall motion was normal; there were no regional wall motion abnormalities. - Ventricular septum: The contour showed no diastolic flattening and no systolic flattening. - Right ventricle: The cavity size was moderately dilated. Wall thickness was normal. Systolic function appears visually reduced, although TAPSE is normal. - Pericardium, extracardiac: A trivial pericardial effusion was identified. If LV function is below 40, please consider prescribing an ACEI or ARB or document rationale for non-use. PROCEDURE DATA STUDY STATUS: Elective. Procedure: Transthoracic echocardiography. Image quality was good. Scanning was performed from the parasternal, apical, and subcostal acoustic windows. Study completion: The patient tolerated the procedure well. Transthoracic echocardiography. M-mode, complete 2D, complete spectral Doppler, and color Doppler. Height: Height: 70in. Weight: Weight: 206.6lb. Body mass index: BMI: 29.7kg/m^2. Body surface area: BSA: 2.12m^2. Patient status: Inpatient. CARDIAC ANATOMY LEFT VENTRICLE: The cavity size was normal. Systolic function was normal. The estimated ejection fraction was in the range of 55% to 60%. Wall motion was normal; there were no regional wall motion abnormalities. AORTIC VALVE: The valve appears to be grossly normal. Doppler: There was no stenosis. No significant regurgitation. Valve area: 2cm^2(VTI). Indexed valve area: 0.94cm^2/m^2 (VTI). Valve area: 1.69cm^2 (Vmax). Indexed valve area: 0.8cm^2/m^2 (Vmax). Mean gradient: 3mm Hg (S). MITRAL VALVE: The valve appears to be grossly normal. Doppler: There was no evidence for stenosis. Trace to mild regurgitation. LEFT ATRIUM: The atrium was normal in size. RIGHT VENTRICLE: The cavity size was moderately dilated. Wall thickness was normal. Systolic function appears visually reduced, although TAPSE is normal. VENTRICULAR SEPTUM: The contour showed no diastolic flattening and no systolic flattening. TRICUSPID VALVE: The valve appears to be grossly normal. Doppler: There was no evidence for stenosis. Trace to mild regurgitation. PERICARDIUM: A trivial pericardial effusion was identified. Patient weight: 206.6lb _Ejection fraction:_ 65-75% _Fractional shortening:_ 32% up to 5Kg 5-11.5Kg 11.6-22.9Kg 23-45Kg 45-57Kg Aortic Root 7-13 <17 13-22 17-27 17-27 LA diam 6-13 <23 24-38 33-47 37-40 RVID 10-17 7-15 7-15 7-18 8-17 LVIDd 12-22 <32 24-38 33-47 37-40 LVPW 2-4 3-6 5-7 6-8 7-8 IVS 2-4 3-6 5-7 6-8 7-8 BASIC MEASUREMENTS ADULT NORMAL Left ventricle LV internal dimension, ED, chordal *42 mm 43-52 level, PLAX LV internal dimension, ES, chordal 29.7 mm 23-38 level, PLAX Fractional shortening, chordal level, *29 % >29 PLAX LV posterior wall thickness, ED 7.35 mm IVS/LVPW ratio, ED 0.85 <1.3 Ventricular septum Septal thickness, ED 6.28 mm Aortic valve Leaflet separation 22 mm 15-26 Aorta Root diameter, ED 32 mm Left atrium Anterior-posterior dimension 26 mm Anterior-posterior dimension index 1.23 cm/m^2 <2.2 BASIC MEASUREMENTS ADULT NORMAL Aortic valve Leaflet separation 22 mm 15-26 DOPPLER MEASUREMENTS ADULT NORMAL Aortic valve Peak velocity, S 125 cm/s Mean velocity, S 78.3 cm/s VTI, S 16.2 cm Mean gradient, S 3 mm Hg Valve area, VTI 2 cm^2 Valve area index, VTI 0.94 cm^2/m^2 Valve area, Vmax 1.69 cm^2 Valve area index, Vmax 0.8 cm^2/m^2 Mitral valve Peak E-wave velocity 68.6 cm/s Peak A-wave velocity 50.3 cm/s Peak E/A ratio 1.4 Tricuspid valve Regurgitant peak velocity 195 cm/s Peak RV-RA gradient, S 15 mm Hg Maximal regurgitant velocity 195 cm/s Pulmonic valve Peak velocity, S 71.4 cm/s LEGEND: Mean values are shown as u=mean value. Asterisk (*) dawn values outside specified normal range. Prepared and signed by Dimitri Ruggiero [id number]
[2016-04-25] VITALS (17 sets, daily range): BP systolic 110–184; BP diastolic 61–90; PULSE 76–124; RESP 13–18; TEMP 98.1–101.3; O2SAT 92–100
[2016-04-25] MEDS: PROPOFOL 1000 MG/100 ML INJ 100 ML IV SCH ×3 (01:00→08:34)
[2016-04-25] MEDS: INSULIN NovoLIN REGULAR SUPPLEMENTAL SCALE SQ SCH ×4 (02:15→20:07)
[2016-04-25] MEDS: CHLORHEXIDINE GLUCONATE 2 % 1 PACK (2 CLOTHS) TOP SCH (04:00)
[2016-04-25] MEDS: RESP: ALBUTEROL 2.5 MG/IPRATROPIUM 0.5 MG NEB (SCH) INH ×4 (04:21→21:03)
[2016-04-25] MEDS: DEXT 5%-NACL 0.9% 1000 ML INJ 1,000 ML IV SCH ×2 (04:39→15:37)
[2016-04-25] MEDS: fentaNYL DRIP 250 ML IV SCH (04:39)
[2016-04-25 06:13] LABS: MEAN CELL VOLUME 82.5 FL (80.0-100.0); MEAN CORPUSCULAR HEMOGLOBIN 27.5 PG (27.0-34.0); MEAN CORPUSCULAR HGB CONC 33.3 % (32.0-36.0); PLATELET COUNT 218 TH/MM3 (150-450); RED BLOOD COUNT 4.97 MIL/MM3 (4.50-5.90); RED CELL DISTRIBUTION WIDTH 13.5 % (11.6-17.2); WHITE BLOOD COUNT 10.1 TH/MM3 (4.0-11.0)
[2016-04-25 06:20] LABS: APTT (PATIENT) 52.4 SEC (24.3-30.1)
[2016-04-25 06:26] LABS: HEMO FLAGS AUTO DIFF
[2016-04-25 06:39] LABS: BICARBONATE 26.4 MEQ/L (21.0-32.0); MAGNESIUM 2.2 MG/DL (1.5-2.5); POTASSIUM 3.8 MEQ/L (3.5-5.1)
[2016-04-25 08:09] LABS: BASOPHILS 1 % (0-2); EOSINOPHILS 2 % (0-4); METAMYELOCYTES 1 % (0-1); PLATELET ESTIMATE SMEAR NORMAL (NORMAL); PLATELET MORPHOLOGY NORMAL (NORMAL); POLYS (SEG NEUTROPHILS) 58 % (16-70); SCAN/DIFF FINAL DIFF MANUAL; WBC DIFF SAMPLE 100
[2016-04-25] MEDS: DILTIAZEM HCL 60 MG TAB PO SCH ×4 (08:31→20:07)
[2016-04-25] MEDS: MULTIVITAMIN TAB PO SCH (08:31)
[2016-04-25] MEDS: THIAMINE HCL 100 MG TAB PO SCH (08:31)
[2016-04-25] MEDS: FOLIC ACID 1 MG TAB PO SCH (08:31)
[2016-04-25] MEDS: PANTOPRAZOLE SODIUM 40 MG VIAL IV SCH (08:32)
[2016-04-25] MEDS ORDERED: INFLUENZA VIRUS VACCINE (QUADRIVALENT) 0.5 ML SYR IM ONE (10:00)
[2016-04-25] MEDS: HEPARIN-D5W INJ 250 ML IV SCH (11:47)
[2016-04-25] MEDS: hydrALAZINE HCL 20 MG/ML VIAL IVP PRN ×2 (15:17→20:29)
--- NOTE | 2016-04-25 15:59 | HHI.CCPN ---
Subjective Remarks/Hospital Course The patient is a 40-year-old male without significant past medical history who was brought into [facility] ED after he was found by his family members this morning unresponsive. They called 911 and upon arrival of EMS the patient had a GCS score of 3. He was subsequently given Narcan 1 mg without any response. In the ED he was intubated with etomidate, succinylcholine and placed on full mechanical ventilation. In addition, he will he was started on a Diprivan infusion for sedation. His laboratory data is significant for lactic acidosis with lactic acid level of 4.7 at 10:20 which increased to 5.2 at 12:30. ABG post intubation showed a pH of 7.25, CO2 47, PAO2 of 494, bicarb 20, saturation of 96% on assist control ventilation with tidal volume 600, respiratory rate 16, PEEP of 5, 100% FIO2. His urine toxicology screen positive for cannabinoids and he was found to have elevated alcohol level at 356. CT scan of the brain was obtained which showed chronic sinusitis, otherwise no acute intracranial process. Chest x-ray post intubation showed ET tube above the cecilio with no obvious cardiopulmonary disease identified. The patient received one liter bolus of normal saline in the ED. His current blood pressure is 146/93 with a pulse of 90. According to his daughter the patient just came back from [place] driving and during his trip he was complaining of shortness of breath. 04/24 Patient is sedated with Diprivan and intubated. CTA chest yesterday showed PE RUL and LLL started on Heparin drip. Afebrile. 04/25 SBT and extubate Objective Vital Signs Date Time Temp Pulse Resp B/P Pulse Ox O2 Delivery O2 Flow Rate FiO2 04/25/16 12:05 92 Nasal Cannula 4 36 04/25/16 06:00 79 04/25/16 04:00 99.5 18 110/61 Intake and Output 04/24/16 04/24/16 04/25/16 08:00 16:00 00:00 Intake Total 1208 ml 680 ml 1751 ml Output Total 450 ml 450 ml 250 ml Balance 758 ml 230 ml 1501 ml Result Diagram: 04/25/16 0558 04/25/16 0558 Imaging Last Impressions Head CT 04/23/16 1014 Signed Impressions: Service Date/Time: Saturday, April 23, 2016 10:44 - CONCLUSION: 1. Chronic sinusitis. 2. Otherwise, no acute intracranial process. Conor Vidal MD Chest X-Ray 04/23/16 1014 Signed Impressions: Service Date/Time: Saturday, April 23, 2016 11:03 - CONCLUSION: 1. Support apparatus in good position. 2. Lungs are clear. Paddy Goldstein MD FACR Lower Extremity Ultrasound 04/23/16 0000 Signed Impressions: Service Date/Time: Saturday, April 23, 2016 18:33 - CONCLUSION: Normal examination. Lázaro Renae MD CT Angiography 04/23/16 0000 Signed Impressions: Service Date/Time: Saturday, April 23, 2016 15:34 - CONCLUSION: 1. Acute pulmonary emboli within the right upper lobe posterior segmental branches and left lower lobe branches. 2. Cardiomegaly. Breezy Olivas MD Abdomen/Pelvis CT 04/23/16 0000 Signed Impressions: Service Date/Time: Saturday, April 23, 2016 15:34 - CONCLUSION: 1. Fatty liver. 2. Bilateral renal cysts. 3. Enlarged prostate. 4. Degenerative changes and scoliosis of the thoracolumbar spine. Breezy Olivas MD Objective Remarks GENERAL: PAtient is 40 yo intubated and sedated. SKIN: Warm and dry. HEAD: Normocephalic. EYES: No scleral icterus. No injection or drainage. NECK: Supple, trachea midline. No JVD or lymphadenopathy. CARDIOVASCULAR: Tachycardic without murmurs, gallops, or rubs. RESPIRATORY: Breath sounds equal bilaterally. No accessory muscle use. GASTROINTESTINAL: Abdomen soft, non-tender, nondistended. MUSCULOSKELETAL: No cyanosis, or edema. Neuro: Sedated A/P Assessment and Plan 1. Vent dependent respiratory failure. 2. Acute PE 3. ETOH intoxication. 4. Lactic acidemia..trending down 5. Elevated CKs. 6. Urine drug screen positive for cannabinoids. Plan Neuro: off Diprivan infusion for sedation and Fentanyl infusion Monitor neuro status closely per protocol. On thiamine, multivitamins and folic acid. CT brain negative for acute intracranial process. Pulm: SBT and extubate Bronchodilators, ICU vent bundle, start SBT daily as any. Continue with heparin drip per PE protocol. CV: Continue Cardizem 60mng QID, Monitor HR and BP and maintain MAP> 65 mmHg. Serial lactic acid monitoring ( trending down) Check echo to eval LV function, r/o RV strain : Monitor renal function, I's and O's, and electrolyte replacement per protocol. Continue IVF D5NS@100ml/hr GI: On Protonix 40 mg IV daily for GI prophylaxis. Start TF today if remains intubated. Heme: Monitor CBC, coags, on heparin drip. ID: Monitor for signs of infections( fever and WBC). UA in the ED negative for UTI and chest x-ray post-intubation showed no acute cardiopulmonary disease. Endo: Place on sliding scale insulin if needed for glycemic control. GI prophylaxis with Protonix 40 mg daily and DVT prophylaxis- on heparin drip. Doppler US LE negative for DVT Level 3 Zhou Figueroa MD Apr 25, 2016 15:59
[2016-04-25] MEDS: ENOXAPARIN SODIUM 100 MG/ML SYRINGE SQ SCH (17:49)
[2016-04-25] MEDS ORDERED: LORazepam 2 MG TAB PO PRN (20:00)
[2016-04-25] MEDS ORDERED: SODIUM CHLORIDE 0.9% FLUSH 5 ML FLUSH IV FLUSH PRN (20:00)
[2016-04-25] MEDS ORDERED: LORazepam 2 MG/ML VIAL IV PUSH PRN ×3 (20:00)
[2016-04-25] MEDS ORDERED: FLUMAZENIL 0.5 MG/5 ML VIAL IV PUSH PRN (20:00)
[2016-04-25] MEDS ORDERED: LORazepam 1 MG TAB PO PRN (20:00)
[2016-04-25] MEDS: ACETAMINOPHEN 500 MG CPLT PO PRN (20:07)
[2016-04-25] MEDS: LORazepam 2 MG/ML VIAL IV PUSH PRN (20:08)
[2016-04-25] MEDS: SODIUM CHLORIDE 0.9% FLUSH 5 ML FLUSH IV FLUSH SCH (20:08)
[2016-04-25] MEDS: METOPROLOL TARTRATE 5 MG/5 ML VIAL IV PUSH SCH (21:51)
--- NOTE | 2016-04-25 23:50 | EKG ---
Date Performed: 04/23/2016 Time Performed: 10:19:57 PTAGE: 40 years EKG: Probable sinus tachycardia BORDERLINE RIGHT AXIS DEVIATION POSSIBLE RIGHT VENTRICULAR CONDU CTION DELAY ABNORMAL RHYTHM ECG NO PREVIOUS TRACING DOCTOR: Dimitri Ruggiero Interpretating Date/Time 04/25/2016 23:49:09
[2016-04-26] VITALS (13 sets, daily range): BP systolic 143–184; BP diastolic 89–96; PULSE 98–120; RESP 16–27; TEMP 99.4–101.8; O2SAT 92–97
[2016-04-26] MEDS: INSULIN NovoLIN REGULAR SUPPLEMENTAL SCALE SQ SCH ×4 (02:15→19:32)
[2016-04-26] MEDS: LORazepam 2 MG/ML VIAL IV PUSH PRN ×2 (03:17→19:34)
[2016-04-26] MEDS: DEXT 5%-NACL 0.9% 1000 ML INJ 1,000 ML IV SCH ×3 (03:17→19:34)
[2016-04-26] MEDS: RESP: ALBUTEROL 2.5 MG/IPRATROPIUM 0.5 MG NEB (SCH) INH ×4 (03:57→21:29)
[2016-04-26] MEDS: CHLORHEXIDINE GLUCONATE 2 % 1 PACK (2 CLOTHS) TOP SCH (04:00)
[2016-04-26] MEDS: ENOXAPARIN SODIUM 100 MG/ML SYRINGE SQ SCH (05:38)
[2016-04-26] MEDS: METOPROLOL TARTRATE 5 MG/5 ML VIAL IV PUSH SCH (05:39)
[2016-04-26 05:51] LABS: APTT (PATIENT) 29.2 SEC (24.3-30.1)
[2016-04-26 05:56] LABS: AUTOMATED NEUTROPHIL # 7.1 TH/MM3 (1.8-7.7); BASOPHIL % 0.3 % (0.0-2.0); EOSINOPHIL # 0.1 TH/MM3 (0-0.4); EOSINOPHIL % 0.9 % (0.0-4.0); HEMATOCRIT 44.5 % (39.0-51.0); HEMO FLAGS DIFF FINAL; LYMPH % 19.7 % (9.0-44.0); MEAN CELL VOLUME 83.3 FL (80.0-100.0); MEAN CORPUSCULAR HEMOGLOBIN 27.3 PG (27.0-34.0); MEAN CORPUSCULAR HGB CONC 32.7 % (32.0-36.0); NEUT % 71.1 % (16.0-70.0); PLATELET COUNT 214 TH/MM3 (150-450); RED BLOOD COUNT 5.34 MIL/MM3 (4.50-5.90); RED CELL DISTRIBUTION WIDTH 13.2 % (11.6-17.2)
[2016-04-26 06:14] LABS: ALKALINE PHOSPHATASE 41 U/L (45-117); ALT (GPT) 27 U/L (12-78); ANION GAP 9 MEQ/L (5-15); AST (GOT) 26 U/L (15-37); BICARBONATE 25.3 MEQ/L (21.0-32.0); BLOOD UREA NITROGEN 9 MG/DL (7-18); CHLORIDE 104 MEQ/L (98-107); GLOMERULAR FILTRATION RATE 175 ML/MIN (>89); MAGNESIUM 2.2 MG/DL (1.5-2.5); POTASSIUM 3.7 MEQ/L (3.5-5.1); SODIUM (NA) 138 MEQ/L (136-145); TOTAL BILIRUBIN ADULT 1.2 MG/DL (0.2-1.0)
[2016-04-26] MEDS: DILTIAZEM HCL 60 MG TAB PO SCH ×4 (09:20→19:33)
[2016-04-26] MEDS: FOLIC ACID 1 MG TAB PO SCH (09:20)
[2016-04-26] MEDS: THIAMINE HCL 100 MG TAB PO SCH (09:20)
[2016-04-26] MEDS: SODIUM CHLORIDE 0.9% FLUSH 5 ML FLUSH IV FLUSH SCH ×2 (09:21→19:33)
[2016-04-26] MEDS: MULTIVITAMIN TAB PO SCH (09:21)
[2016-04-26] MEDS: PANTOPRAZOLE SODIUM 40 MG VIAL IV SCH (09:21)
--- NOTE | 2016-04-26 15:43 | HHI.PR ---
Subjective Remarks Follow-up for alcoholism, bilateral PE. Patient is currently doing well. He does not talk much but responds appropriately. Denies any chest pain, shortness of breath, fever or chills. Currently he is on 3 L of oxygen via nasal cannula. Objective Vitals Vital Signs Date Time Temp Pulse Resp B/P Pulse Ox O2 Delivery O2 Flow Rate FiO2 04/26/16 14:00 113 04/26/16 12:00 107 04/26/16 12:00 100.5 107 21 152/93 96 04/26/16 10:00 106 04/26/16 08:00 104 04/26/16 08:00 99.5 104 17 159/89 96 04/26/16 07:00 96 Nasal Cannula 3.00 04/26/16 06:00 98 04/26/16 04:00 113 04/26/16 04:00 99.5 113 17 154/92 96 04/26/16 02:00 105 04/26/16 00:00 105 04/26/16 00:00 100.3 105 16 151/95 97 04/25/16 22:00 115 04/25/16 21:03 94 Nasal Cannula 6.00 04/25/16 20:00 124 04/25/16 20:00 101.3 124 17 184/90 96 04/25/16 20:00 96 Nasal Cannula 6.00 04/25/16 18:00 115 04/25/16 16:00 99.6 108 16 171/83 96 04/25/16 16:00 108 I/O 04/25/16 04/25/16 04/25/16 04/26/16 04/26/16 04/26/16 07:00 15:00 23:00 07:00 15:00 23:00 Intake Total 1203 ml 1643 ml 240 ml 1413 ml 1187 ml Output Total 250 ml 1625 ml 2500 ml 1850 ml Balance 953 ml 18 ml 240 ml -1087 ml -663 ml Intake Oral 50 ml 240 ml 240 ml IV Total 973 ml 1281 ml 1413 ml 947 ml Tube Feeding 230 ml 222 ml Other 90 ml Output Urine Total 250 ml 1625 ml 2500 ml 1850 ml Tube Feeding Residual Discard 0 ml # Bowel Movements 0 Result Diagram: 04/26/16 0501 04/26/16 0501 Imaging Last Impressions Head CT 04/23/16 1014 Signed Impressions: Service Date/Time: Saturday, April 23, 2016 10:44 - CONCLUSION: 1. Chronic sinusitis. 2. Otherwise, no acute intracranial process. Conor Vidal MD Chest X-Ray 04/23/16 1014 Signed Impressions: Service Date/Time: Saturday, April 23, 2016 11:03 - CONCLUSION: 1. Support apparatus in good position. 2. Lungs are clear. Paddy Goldstein MD FACR Lower Extremity Ultrasound 04/23/16 0000 Signed Impressions: Service Date/Time: Saturday, April 23, 2016 18:33 - CONCLUSION: Normal examination. Lázaro Renae MD CT Angiography 04/23/16 0000 Signed Impressions: Service Date/Time: Saturday, April 23, 2016 15:34 - CONCLUSION: 1. Acute pulmonary emboli within the right upper lobe posterior segmental branches and left lower lobe branches. 2. Cardiomegaly. Breezy Olivas MD Abdomen/Pelvis CT 04/23/16 0000 Signed Impressions: Service Date/Time: Saturday, April 23, 2016 15:34 - CONCLUSION: 1. Fatty liver. 2. Bilateral renal cysts. 3. Enlarged prostate. 4. Degenerative changes and scoliosis of the thoracolumbar spine. Breezy Olivas MD Objective Remarks GENERAL: Alert, SKIN: Warm and dry. HEAD: Normocephalic. EYES: No scleral icterus. No injection or drainage. NECK: Supple, trachea midline. No JVD or lymphadenopathy. CARDIOVASCULAR: Regular rate and rhythm without murmurs, gallops, or rubs. RESPIRATORY: Breath sounds equal bilaterally. No accessory muscle use. GASTROINTESTINAL: Abdomen soft, non-tender, nondistended. MUSCULOSKELETAL: No cyanosis, or edema. BACK: Nontender without obvious deformity. No CVA tenderness. Procedures Echo 04/24/2016 - Left ventricle: The cavity size was normal. Systolic function was normal. The estimated ejection fraction was in the range of 55% to 60%. Wall motion was normal; there were no regional wall motion abnormalities. - Ventricular septum: The contour showed no diastolic flattening and no systolic flattening. - Right ventricle: The cavity size was moderately dilated. Wall thickness was normal. Systolic function appears visually reduced, although TAPSE is normal. - Pericardium, extracardiac: A trivial pericardial effusion was identified. A/P Problem List: (1) Acute respiratory failure requiring reintubation ICD Code: J96.00 Status: Acute (2) Acute alcohol intoxication ICD Code: F10.129 Status: Acute (3) Acute pulmonary embolism ICD Code: I26.99 Status: Acute Assessment and Plan Mr. Hutchinson is a 40-year-old male with who was admitted to the hospital after his family found patient unresponsive on 04/23/2016. On presentation his GCS score was 3. He was given Narcan but did not show any improvement. Patient was intubated and remained on mechanical ventilation until 04/25/2016. Patient's alcohol level was 356. CT pulmonary angiogram shows bilateral PE. Patient was started on heparin drip and later changed to Lovenox therapeutic dose. - Acute respiratory failure status post extubation on 04/25/2016. - Acute bilateral Pulmonary embolism - Patient is currently doing well. Wean off oxygen as much as possible, currently on 3 L of oxygen via nasal cannula. - Continue DuoNeb. - Discontinue Lovenox therapeutic dose. Start apixaban 10 mg twice a day starting at 6 PM on 04/26/2016. - Patient received full ablation with heparin, Lovenox since 04/23/2016. - We'll continue apixaban for 4 more days at 10 mg twice a day and then continue 5 mg twice a day. - Discussed with case management patient can get apixaban under patient's assistance (blue card) - Alcohol abuse - Continue CIWA protocol. - Continue D5 normal saline at 100 cc per hour. - As patient tolerates by mouth diet can discontinue fluid - hopefully by 12/2016. - Continue folic acid, multivitamin, thiamine. - Tachycardia - Hypertension - Continue Cardizem 60mg QID. - Echo shows preserved EF. - If BP remains elevated persistently, we may consider Amlodipine instead of Cardizem. - GERD - continue Protonix but switch to PO. Full code. Apixaban starting 04/26/2016 at 1800. Received Lovenox this AM. Problem Qualifiers (1) Acute alcohol intoxication: Qualified Code: F10.129 - Acute alcohol intoxication, with unspecified complication Annette Puente DO Apr 26, 2016 3:43 pm
[2016-04-26] MEDS: APIXABAN 5 MG TABLET PO SCH (17:39)
[2016-04-26] MEDS: ACETAMINOPHEN 500 MG CPLT PO PRN (19:35)
[2016-04-27] VITALS (11 sets, daily range): BP systolic 132–148; BP diastolic 84–98; PULSE 99–124; RESP 16–24; TEMP 99–100.6; O2SAT 92–99
[2016-04-27] MEDS: INSULIN NovoLIN REGULAR SUPPLEMENTAL SCALE SQ SCH ×4 (02:15→17:48)
[2016-04-27] MEDS: RESP: ALBUTEROL 2.5 MG/IPRATROPIUM 0.5 MG NEB (SCH) INH ×4 (03:37→22:13)
[2016-04-27] MEDS: CHLORHEXIDINE GLUCONATE 2 % 1 PACK (2 CLOTHS) TOP SCH (04:00)
[2016-04-27] MEDS: DEXT 5%-NACL 0.9% 1000 ML INJ 1,000 ML IV SCH (06:06)
[2016-04-27] MEDS: APIXABAN 5 MG TABLET PO SCH ×2 (06:07→17:18)
[2016-04-27] MEDS: THIAMINE HCL 100 MG TAB PO SCH (08:41)
[2016-04-27] MEDS: MULTIVITAMIN TAB PO SCH (08:41)
[2016-04-27] MEDS: DILTIAZEM HCL 60 MG TAB PO SCH ×2 (08:41→13:07)
[2016-04-27] MEDS: SODIUM CHLORIDE 0.9% FLUSH 5 ML FLUSH IV FLUSH SCH ×2 (08:42→20:35)
[2016-04-27] MEDS: PANTOPRAZOLE SOD 40 MG DELAYED RELEASE TAB PO SCH (08:42)
[2016-04-27] MEDS: FOLIC ACID 1 MG TAB PO SCH (08:42)
[2016-04-27] MEDS ORDERED: LACTULOSE SYRUP 20 GM/30 ML CUP PO PRN (11:15)
[2016-04-27] MEDS ORDERED: BISACODYL 10 MG SUPP PR PRN (11:15)
[2016-04-27] MEDS ORDERED: DOCUSATE SODIUM 100 MG CAP PO PRN (11:15)
[2016-04-27] MEDS ORDERED: MAGNESIUM HYDROXIDE SUSP 30 ML CUP PO PRN (12:00)
--- NOTE | 2016-04-27 14:50 | HHI.PR ---
Subjective Remarks F/U PE. No SOB but still ST 120s dw RN Objective Vitals Vital Signs Date Time Temp Pulse Resp B/P Pulse Ox O2 Delivery O2 Flow Rate FiO2 04/27/16 12:00 115 04/27/16 12:00 99.6 115 24 148/98 93 04/27/16 10:00 124 04/27/16 08:00 100.6 115 22 140/88 92 04/27/16 08:00 115 04/27/16 08:00 92 Room Air 04/27/16 07:59 93 04/27/16 06:24 97 Room Air 04/27/16 06:00 104 04/27/16 04:00 99.7 100 20 137/87 97 04/27/16 04:00 100 04/27/16 02:00 99 04/27/16 00:00 105 04/27/16 00:00 99.5 105 21 132/84 99 04/26/16 22:00 117 04/26/16 20:00 101.8 119 27 143/92 92 04/26/16 20:00 118 04/26/16 19:20 93 Nasal Cannula 3.00 04/26/16 19:00 93 Nasal Cannula 3.00 04/26/16 18:00 114 04/26/16 16:00 120 04/26/16 16:00 99.4 120 21 184/96 93 I/O 04/26/16 04/26/16 04/26/16 04/27/16 04/27/16 04/27/16 07:00 15:00 23:00 07:00 15:00 23:00 Intake Total 1413 ml 1187 ml 575 ml 815 ml Output Total 2500 ml 1850 ml 1000 ml 600 ml Balance -1087 ml -663 ml -425 ml 215 ml Intake Oral 240 ml 120 ml IV Total 1413 ml 947 ml 575 ml 695 ml Output Urine Total 2500 ml 1850 ml 1000 ml 600 ml Result Diagram: 04/26/16 0501 04/26/16 0501 Imaging Last Impressions Head CT 04/23/16 1014 Signed Impressions: Service Date/Time: Saturday, April 23, 2016 10:44 - CONCLUSION: 1. Chronic sinusitis. 2. Otherwise, no acute intracranial process. Conor Vidal MD Chest X-Ray 04/23/16 1014 Signed Impressions: Service Date/Time: Saturday, April 23, 2016 11:03 - CONCLUSION: 1. Support apparatus in good position. 2. Lungs are clear. Paddy Goldstein MD FACR Lower Extremity Ultrasound 04/23/16 0000 Signed Impressions: Service Date/Time: Saturday, April 23, 2016 18:33 - CONCLUSION: Normal examination. Lázaro Renae MD CT Angiography 04/23/16 0000 Signed Impressions: Service Date/Time: Saturday, April 23, 2016 15:34 - CONCLUSION: 1. Acute pulmonary emboli within the right upper lobe posterior segmental branches and left lower lobe branches. 2. Cardiomegaly. Breezy Olivas MD Abdomen/Pelvis CT 04/23/16 0000 Signed Impressions: Service Date/Time: Saturday, April 23, 2016 15:34 - CONCLUSION: 1. Fatty liver. 2. Bilateral renal cysts. 3. Enlarged prostate. 4. Degenerative changes and scoliosis of the thoracolumbar spine. Breezy Olivas MD Objective Remarks GENERAL: Alert, SKIN: Warm and dry. HEAD: Normocephalic. EYES: No scleral icterus. No injection or drainage. NECK: Supple, trachea midline. No JVD or lymphadenopathy. CARDIOVASCULAR: Tachycardic RESPIRATORY: Breath sounds equal bilaterally. No accessory muscle use. GASTROINTESTINAL: Abdomen soft, non-tender, nondistended. MUSCULOSKELETAL: No cyanosis, or edema. BACK: Nontender without obvious deformity. No CVA tenderness. Procedures Echo 04/24/2016 - Left ventricle: The cavity size was normal. Systolic function was normal. The estimated ejection fraction was in the range of 55% to 60%. Wall motion was normal; there were no regional wall motion abnormalities. - Ventricular septum: The contour showed no diastolic flattening and no systolic flattening. - Right ventricle: The cavity size was moderately dilated. Wall thickness was normal. Systolic function appears visually reduced, although TAPSE is normal. - Pericardium, extracardiac: A trivial pericardial effusion was identified. A/P Problem List: (1) Acute respiratory failure requiring reintubation ICD Code: J96.00 Status: Acute (2) Acute alcohol intoxication ICD Code: F10.129 Status: Acute (3) Acute pulmonary embolism ICD Code: I26.99 Status: Acute Assessment and Plan Mr. Hutchinson is a 40-year-old male with who was admitted to the hospital after his family found patient unresponsive on 04/23/2016. On presentation his GCS score was 3. He was given Narcan but did not show any improvement. Patient was intubated and remained on mechanical ventilation until 04/25/2016. Patient's alcohol level was 356. CT pulmonary angiogram shows bilateral PE. Patient was started on heparin drip and later changed to Lovenox therapeutic dose. - Acute respiratory failure status post extubation on 04/25/2016. Tolerating room air - Acute bilateral Pulmonary embolism likely related to recent long land trip. Negative family and personal hx - Patient is currently doing well. Check hypercoagulable panel - Continue DuoNeb. - Discontinued Lovenox therapeutic dose. Started apixaban 10 mg twice a day starting at 6 PM on 04/26/2016. - Patient received full anticoagulation with Lovenox since 04/23/2016. - We'll continue apixaban at 10 mg twice a day and then 5 mg twice a day. - Discussed with case management patient can get apixaban under patient's assistance (blue card) - Alcohol abuse - Continue CIWA protocol. - Counselled - As patient tolerates by mouth diet can discontinue fluid - hopefully by 12/2016. - Continue folic acid, multivitamin, thiamine. - Tachycardia - Hypertension -Uncontrolled increased Cardizem to 90mg QID. - Echo shows preserved EF. - If BP remains elevated persistently, we may consider Amlodipine instead of Cardizem. - GERD - continue Protonix but switch to PO. Full code. Discharge Planning Stable for transfer to floor Problem Qualifiers (1) Acute alcohol intoxication: Qualified Code: F10.129 - Acute alcohol intoxication, with unspecified complication Yoav Byrne MD Apr 27, 2016 14:50
[2016-04-27] MEDS: DILTIAZEM HCL 90 MG TAB PO SCH ×2 (17:18→20:35)
[2016-04-27] MEDS: DOCUSATE SODIUM 50 MG/SENNA 8.6 MG TAB PO SCH (20:35)
[2016-04-27] MEDS: ACETAMINOPHEN 500 MG CPLT PO PRN (21:23)
[2016-04-28] VITALS (9 sets, daily range): BP systolic 144–149; BP diastolic 87–97; PULSE 98–126; RESP 12–20; TEMP 98.1–102.5; O2SAT 92–99
[2016-04-28] MEDS: RESP: ALBUTEROL 2.5 MG/IPRATROPIUM 0.5 MG NEB (SCH) INH ×4 (03:31→20:04)
[2016-04-28] MEDS: CHLORHEXIDINE GLUCONATE 2 % 1 PACK (2 CLOTHS) TOP SCH (04:00)
[2016-04-28] MEDS: ACETAMINOPHEN 500 MG CPLT PO PRN ×2 (05:12→17:16)
[2016-04-28] MEDS: APIXABAN 5 MG TABLET PO SCH ×2 (05:13→17:16)
[2016-04-28] MEDS: INSULIN NovoLIN REGULAR SUPPLEMENTAL SCALE SQ SCH ×2 (06:00)
[2016-04-28] MEDS: SODIUM CHLORIDE 0.9% FLUSH 5 ML FLUSH IV FLUSH SCH ×2 (09:00→21:22)
[2016-04-28] MEDS: MULTIVITAMIN TAB PO SCH (10:20)
[2016-04-28] MEDS: THIAMINE HCL 100 MG TAB PO SCH (10:20)
[2016-04-28] MEDS: PANTOPRAZOLE SOD 40 MG DELAYED RELEASE TAB PO SCH (10:20)
[2016-04-28] MEDS: FOLIC ACID 1 MG TAB PO SCH (10:20)
[2016-04-28] MEDS: DILTIAZEM HCL 90 MG TAB PO SCH ×4 (10:20→21:21)
[2016-04-28] MEDS: DOCUSATE SODIUM 50 MG/SENNA 8.6 MG TAB PO SCH ×2 (10:21→21:22)
[2016-04-28] MEDS ORDERED: DILT90TA PO (10:26)
[2016-04-28] MEDS ORDERED: APIX5TAB PO ×2 (10:26)
[2016-04-28] MEDS ORDERED: VITA100T2 PO (10:26)
[2016-04-28] MEDS ORDERED: OXYGENTANK NAS.CANULA (10:28)
--- NOTE | 2016-04-28 10:28 | HHI.DCPOC ---
Discharge Care Plan Diagnosis: (1) Acute pulmonary embolism Your Health Problems Are: Difficulty with ADL Exercise Tolerance Goals to Promote Your Health * To prevent worsening of your condition and complications * To maintain your health at the optimal level Directions to Meet Your Goals Take your medications as prescribed Follow your dietary instruction Follow activity as directed Keep your appointments as scheduled Take your immunizations and boosters as scheduled If your symptoms worsen call your PCP, if no PCP go to Urgent Care Center or Emergency Room Smoking is Dangerous to Your Health. Avoid second hand smoke Call the 24-hour hour crisis hotline for domestic abuse at Yoav Byrne MD Apr 28, 2016 10:28
--- NOTE | 2016-04-28 10:31 | HHI.PR ---
Subjective Remarks Follow-up pulmonary embolism. Denies chest pain and shortness of breath. States he is going to quit alcohol. Discussed with RN and case management, oxygen walk test and to ensure patient will continue eliquis Objective Vitals Vital Signs Date Time Temp Pulse Resp B/P Pulse Ox O2 Delivery O2 Flow Rate FiO2 04/28/16 10:20 96 21 04/28/16 08:00 98.9 104 18 146/96 94 04/28/16 04:00 98.1 102 18 149/87 95 04/28/16 00:33 99.6 116 18 146/97 99 04/27/16 22:14 21 04/27/16 20:00 100.4 118 16 144/98 92 04/27/16 20:00 121 04/27/16 20:00 Room Air 04/27/16 16:00 99.0 119 18 138/92 93 04/27/16 14:00 116 04/27/16 12:00 115 04/27/16 12:00 99.6 115 24 148/98 93 I/O 04/27/16 04/27/16 04/27/16 04/28/16 04/28/16 04/28/16 07:00 15:00 23:00 07:00 15:00 23:00 Intake Total 815 ml 1040 ml 240 ml 480 ml Output Total 600 ml 1750 ml 200 ml 325 ml Balance 215 ml -710 ml 40 ml 155 ml Intake Oral 120 ml 840 ml 240 ml 480 ml IV Total 695 ml 200 ml Output Urine Total 600 ml 1750 ml 200 ml 325 ml # Bowel Movements 1 Result Diagram: 04/26/16 0501 04/26/16 0501 Objective Remarks GENERAL: Alert, awake in no distress SKIN: Warm and dry. HEAD: Normocephalic. EYES: No scleral icterus. No injection or drainage. NECK: Supple, trachea midline. No JVD or lymphadenopathy. CARDIOVASCULAR: Tachycardic RESPIRATORY: Breath sounds equal bilaterally. No accessory muscle use. GASTROINTESTINAL: Abdomen soft, non-tender, nondistended. MUSCULOSKELETAL: No cyanosis, or edema. BACK: Nontender without obvious deformity. No CVA tenderness. Procedures Echo 04/24/2016 - Left ventricle: The cavity size was normal. Systolic function was normal. The estimated ejection fraction was in the range of 55% to 60%. Wall motion was normal; there were no regional wall motion abnormalities. - Ventricular septum: The contour showed no diastolic flattening and no systolic flattening. - Right ventricle: The cavity size was moderately dilated. Wall thickness was normal. Systolic function appears visually reduced, although TAPSE is normal. - Pericardium, extracardiac: A trivial pericardial effusion was identified. A/P Problem List: (1) Acute respiratory failure requiring reintubation ICD Code: J96.00 Status: Acute (2) Acute alcohol intoxication ICD Code: F10.129 Status: Acute (3) Acute pulmonary embolism ICD Code: I26.99 Status: Acute Assessment and Plan Mr. Hutchinson is a 40-year-old male with who was admitted to the hospital after his family found patient unresponsive on 04/23/2016. On presentation his GCS score was 3. He was given Narcan but did not show any improvement. Patient was intubated and remained on mechanical ventilation until 04/25/2016. Patient's alcohol level was 356. CT pulmonary angiogram shows bilateral PE. Patient was started on heparin drip and later changed to Lovenox therapeutic dose. - Acute respiratory failure status post extubation on 04/25/2016. Tolerating room air. Check walk test - Acute bilateral Pulmonary embolism likely related to recent long land trip. Negative family and personal hx - Patient is currently doing well. Check hypercoagulable panel pending at this time, patient to follow with PCP - Continue DuoNeb. - Discontinued Lovenox therapeutic dose. Started apixaban 10 mg twice a day 6 PM on 04/26/2016. - We'll continue apixaban at 10 mg twice a day and then 5 mg twice a day - Discussed with case management patient can get apixaban under patient's assistance (blue card) - Alcohol abuse - Continue CIWA protocol. - Counselled - Continue folic acid, multivitamin, thiamine. - Tachycardia - Hypertension -Uncontrolled increased Cardizem to 90mg QID. - Echo shows preserved EF. - If BP remains elevated persistently, we may consider Amlodipine instead of Cardizem. - GERD - continue Protonix but switch to PO. Full code. Discharge Planning Stable for discharge Problem Qualifiers (1) Acute alcohol intoxication: Qualified Code: F10.129 - Acute alcohol intoxication, with unspecified complication Yoav Byrne MD Apr 28, 2016 10:31
--- NOTE | 2016-04-28 10:32 | HHI.DS ---
Discharge Summary Admission Date Apr 23, 2016 at 11:42 Discharge Date: Apr 28, 2016 Admitting Diagnosis unresponsive, respiratory failure, acute alcohol intoxication, metab (1) Acute respiratory failure requiring reintubation ICD Code: J96.00 Diagnosis: Principal (2) Acute alcohol intoxication ICD Code: F10.129 Diagnosis: Principal (3) Acute pulmonary embolism ICD Code: I26.99 Diagnosis: Principal Procedures Echo 04/24/2016 - Left ventricle: The cavity size was normal. Systolic function was normal. The estimated ejection fraction was in the range of 55% to 60%. Wall motion was normal; there were no regional wall motion abnormalities. - Ventricular septum: The contour showed no diastolic flattening and no systolic flattening. - Right ventricle: The cavity size was moderately dilated. Wall thickness was normal. Systolic function appears visually reduced, although TAPSE is normal. - Pericardium, extracardiac: A trivial pericardial effusion was identified. Brief History - From Admission The patient is a 40-year-old male without significant past medical history who was brought into [facility] ED after he was found by his family members this morning unresponsive. They called 911 and upon arrival of EMS the patient had a GCS score of 3. He was subsequently given Narcan 1 mg without any response. CBC/BMP: 04/26/16 0501 04/26/16 0501 Significant Findings Laboratory Tests Test 04/26/16 05:01 Neutrophils (%) (Auto) 71.1 % (16.0-70.0) Total Bilirubin 1.2 MG/DL (0.2-1.0) Alkaline Phosphatase 41 U/L (45-117) Albumin 2.8 GM/DL (3.4-5.0) Imaging Last Impressions Head CT 04/23/16 1014 Signed Impressions: Service Date/Time: Saturday, April 23, 2016 10:44 - CONCLUSION: 1. Chronic sinusitis. 2. Otherwise, no acute intracranial process. oCnor Vidal MD Chest X-Ray 04/23/16 1014 Signed Impressions: Service Date/Time: Saturday, April 23, 2016 11:03 - CONCLUSION: 1. Support apparatus in good position. 2. Lungs are clear. Paddy Goldstein MD FACR Lower Extremity Ultrasound 04/23/16 Signed Impressions: Service Date/Time: Saturday, April 23, 2016 18:33 - CONCLUSION: Normal examination. Lázaro Renae MD CT Angiography 04/23/16 Signed Impressions: Service Date/Time: Saturday, April 23, 2016 15:34 - CONCLUSION: 1. Acute pulmonary emboli within the right upper lobe posterior segmental branches and left lower lobe branches. 2. Cardiomegaly. Breezy Olivas MD Abdomen/Pelvis CT 04/23/16 Signed Impressions: Service Date/Time: Saturday, April 23, 2016 15:34 - CONCLUSION: 1. Fatty liver. 2. Bilateral renal cysts. 3. Enlarged prostate. 4. Degenerative changes and scoliosis of the thoracolumbar spine. Breezy Olivas MD PE at Discharge GENERAL: Alert, awake in no distress SKIN: Warm and dry. HEAD: Normocephalic. EYES: No scleral icterus. No injection or drainage. NECK: Supple, trachea midline. No JVD or lymphadenopathy. CARDIOVASCULAR: Tachycardic RESPIRATORY: Breath sounds equal bilaterally. No accessory muscle use. GASTROINTESTINAL: Abdomen soft, non-tender, nondistended. MUSCULOSKELETAL: No cyanosis, or edema. BACK: Nontender without obvious deformity. No CVA tenderness. Hospital Course Mr. Hutchinson is a 40-year-old male with who was admitted to the hospital after his family found patient unresponsive on 04/23/2016. On presentation his GCS score was 3. He was given Narcan but did not show any improvement. Patient was intubated and remained on mechanical ventilation until 04/25/2016. Patient's alcohol level was 356. CT pulmonary angiogram shows bilateral PE. Patient was started on heparin drip and later changed to Lovenox therapeutic dose. - Acute respiratory failure status post extubation on 04/25/2016. Tolerating room air. Check walk test - Acute bilateral Pulmonary embolism likely related to recent long land trip. Negative family and personal hx - Patient is currently doing well. Check hypercoagulable panel pending at this time, patient to follow with PCP - Continue DuoNeb. - Discontinued Lovenox therapeutic dose. Started apixaban 10 mg twice a day 6 PM on 04/26/2016. - We'll continue apixaban at 10 mg twice a day and then 5 mg twice a day - Discussed with case management patient can get apixaban under patient's assistance (blue card) - Alcohol abuse - Continue CIWA protocol. - Counselled - Continue folic acid, multivitamin, thiamine. - Tachycardia - Hypertension -Uncontrolled increased Cardizem to 90mg QID. - Echo shows preserved EF. - If BP remains elevated persistently, we may consider Amlodipine instead of Cardizem. - GERD - continue Protonix but switch to PO. Full code. Pt Condition on Discharge: Stable Discharge Disposition: Discharge Home Discharge Time: <= 30 minutes Discharge Instructions DIET: Follow Instructions for: Heart Healthy Diet Activities you can perform: Regular-No Restrictions Activities to Avoid: Driving Follow up Referrals: PCP Follow-up - 1 Week New Medications: Oxygen tank (Oxygen tank) 1 Ea Tank 2 LITER MARIELLA.CANSkiipi CONTINUOUS Oxygen Concentrator Portable Gaseous 2 L/min via Nasal Cannula Continuous For 99 months HYPOXEMIA PREVENTION #1 CYLINDER Apixaban (Eliquis) 5 Mg Tab 10 MG PO Q12H stop after 04/30 pm dose Prevent Blood Clot #5 TAB Apixaban (Eliquis) 5 Mg Tab 5 MG PO Q12H start 05/01 Prevent Blood Clot #60 TAB Diltiazem (Diltiazem) 90 Mg Tab 90 MG PO QID Blood Pressure Management #120 TAB Thiamine (Vitamin B-1) 100 Mg Tab 100 MG PO DAILY Alcohol Detox #30 TAB Yoav Byrne MD Apr 28, 2016 10:32 am Annette Puente DO May 01, 2016 4:48 pm
--- NOTE | 2016-04-28 19:19 | RADRPT ---
EXAM DATE/TIME: 04/28/2016 18:05 [place] COMPARISON: CHEST SINGLE AP, April 23, 2016, 11:03. INDICATIONS : Fever. MEDICAL HISTORY : Blood clots in lungs. SURGICAL HISTORY : None. ENCOUNTER: Initial ACUITY: 1 day PAIN SCORE: 0/10 LOCATION: chest FINDINGS: There is focal consolidation right lung base most characteristic of a small bronchopneumonia in patie nt with fever. Minimal left basal atelectasis. No effusion. No pneumothorax. Heart size normal. CONCLUSION: 1. Focal consolidation right lung base most characteristic of bronchopneumonia. Lázaro Renae MD on April 28, 2016 at 19:17 Board Certified Radiologist. This report was verified electronically.
[2016-04-29] VITALS (10 sets, daily range): BP systolic 141–160; BP diastolic 87–101; PULSE 101–108; RESP 20–26; TEMP 98.1–101.3; O2SAT 94–97
[2016-04-29] MEDS: ACETAMINOPHEN 500 MG CPLT PO PRN (00:17)
[2016-04-29] MEDS: hydrALAZINE HCL 20 MG/ML VIAL IVP PRN (00:17)
[2016-04-29] MEDS ORDERED: Vancomycin Consult Pharmacy 1 EA OTHER SCH (00:45)
[2016-04-29] MEDS: PIPERACIL-TAZO 4.5 GM PREMIX 100 ML IV SCH ×4 (01:51→22:03)
[2016-04-29] MEDS: VANCOMYCIN INJ 1,500 MG in SODIUM CHLORID 0.9% 500 ML INJ 500 ML IV SCH ×3 (01:52→17:51)
[2016-04-29] MEDS: RESP: ALBUTEROL 2.5 MG/IPRATROPIUM 0.5 MG NEB (SCH) INH ×4 (03:27→22:25)
[2016-04-29] MEDS: CHLORHEXIDINE GLUCONATE 2 % 1 PACK (2 CLOTHS) TOP SCH (04:00)
[2016-04-29] MEDS: APIXABAN 5 MG TABLET PO SCH ×2 (06:35→17:51)
[2016-04-29 07:44] LABS: AUTOMATED NEUTROPHIL # 8.1 TH/MM3 (1.8-7.7); BASOPHIL % 0.4 % (0.0-2.0); EOSINOPHIL % 0.3 % (0.0-4.0); HEMATOCRIT 42.3 % (39.0-51.0); HEMO FLAGS DIFF FINAL; LYMPH % 15.4 % (9.0-44.0); LYMPHOCYTE # 1.7 TH/MM3 (1.0-4.8); MEAN CELL VOLUME 81.7 FL (80.0-100.0); MEAN CORPUSCULAR HEMOGLOBIN 27.9 PG (27.0-34.0); MEAN CORPUSCULAR HGB CONC 34.1 % (32.0-36.0); MONO % 9.9 % (0.0-8.0); PLATELET COUNT 303 TH/MM3 (150-450); RED BLOOD COUNT 5.18 MIL/MM3 (4.50-5.90); RED CELL DISTRIBUTION WIDTH 12.8 % (11.6-17.2); WHITE BLOOD COUNT 10.9 TH/MM3 (4.0-11.0)
[2016-04-29 08:13] LABS: POTASSIUM 3.7 MEQ/L (3.5-5.1)
[2016-04-29] MEDS ORDERED: hydrALAZINE HCL 20 MG/ML VIAL IV PRN (09:15)
[2016-04-29] MEDS ORDERED: ENALAPRILAT 1.25 MG/ML VIAL IV PRN (09:15)
[2016-04-29] MEDS ORDERED: cloNIDine HCL 0.1 MG TAB PO PRN (09:15)
[2016-04-29] MEDS: DOCUSATE SODIUM 50 MG/SENNA 8.6 MG TAB PO SCH ×2 (09:50→21:00)
[2016-04-29] MEDS: MULTIVITAMIN TAB PO SCH (09:50)
[2016-04-29] MEDS: THIAMINE HCL 100 MG TAB PO SCH (09:50)
[2016-04-29] MEDS: PANTOPRAZOLE SOD 40 MG DELAYED RELEASE TAB PO SCH (09:50)
[2016-04-29] MEDS: DILTIAZEM HCL 90 MG TAB PO SCH ×4 (09:50→22:10)
[2016-04-29] MEDS: FOLIC ACID 1 MG TAB PO SCH (09:50)
[2016-04-29] MEDS: SODIUM CHLORIDE 0.9% FLUSH 5 ML FLUSH IV FLUSH SCH ×2 (09:51→22:10)
--- NOTE | 2016-04-29 10:29 | HHI.PR ---
Subjective Remarks Follow-up fever MAXIMUM TEMPERATURE 102. Chest x-ray showed right pneumonia and started on IV vancomycin and Zosyn. This morning he feels better. Discussed with RN and family Objective Vitals Vital Signs Date Time Temp Pulse Resp B/P Pulse Ox O2 Delivery O2 Flow Rate FiO2 04/29/16 04:00 98.8 106 23 145/100 96 04/29/16 01:53 98.3 04/29/16 00:00 101.3 104 26 160/101 95 04/29/16 00:00 Room Air 04/28/16 21:45 Room Air 04/28/16 21:45 Room Air 04/28/16 20:05 92 21.00 04/28/16 20:00 102 04/28/16 20:00 99.0 103 12 144/95 92 04/28/16 16:00 102.5 124 20 147/93 94 04/28/16 12:00 99.1 117 20 144/89 96 04/28/16 11:20 126 I/O 04/28/16 04/28/16 04/28/16 04/29/16 04/29/16 04/29/16 07:00 15:00 23:00 07:00 15:00 23:00 Intake Total 480 ml 480 ml 569 ml Output Total 325 ml 800 ml 500 ml Balance 155 ml -320 ml 69 ml Intake Oral 480 ml 480 ml 0 ml IV Total 569 ml Output Urine Total 325 ml 800 ml 500 ml # Voids 2 2 # Bowel Movements 0 0 0 Result Diagram: 04/29/16 0713 04/29/16 0713 Imaging Last Impressions Chest X-Ray 04/28/16 0000 Signed Impressions: Service Date/Time: Thursday, April 28, 2016 18:05 - CONCLUSION: 1. Focal consolidation right lung base most characteristic of bronchopneumonia. Lázaro Renae MD Head CT 04/23/16 1014 Signed Impressions: Service Date/Time: Saturday, April 23, 2016 10:44 - CONCLUSION: 1. Chronic sinusitis. 2. Otherwise, no acute intracranial process. Conor Vidal MD Lower Extremity Ultrasound 04/23/16 0000 Signed Impressions: Service Date/Time: Saturday, April 23, 2016 18:33 - CONCLUSION: Normal examination. Lázaro Renae MD CT Angiography 04/23/16 0000 Signed Impressions: Service Date/Time: Saturday, April 23, 2016 15:34 - CONCLUSION: 1. Acute pulmonary emboli within the right upper lobe posterior segmental branches and left lower lobe branches. 2. Cardiomegaly. Breezy Olivas MD Abdomen/Pelvis CT 04/23/16 0000 Signed Impressions: Service Date/Time: Saturday, April 23, 2016 15:34 - CONCLUSION: 1. Fatty liver. 2. Bilateral renal cysts. 3. Enlarged prostate. 4. Degenerative changes and scoliosis of the thoracolumbar spine. Breezy Olivas MD Objective Remarks GENERAL: Alert, awake in no distress SKIN: Warm and dry. HEAD: Normocephalic. EYES: No scleral icterus. No injection or drainage. NECK: Supple, trachea midline. No JVD or lymphadenopathy. CARDIOVASCULAR: Tachycardic RESPIRATORY: Decreased Breath sounds equal bilaterally. No accessory muscle use. GASTROINTESTINAL: Abdomen soft, non-tender, nondistended. MUSCULOSKELETAL: No cyanosis, or edema. BACK: Nontender without obvious deformity. No CVA tenderness. Procedures Echo 04/24/2016 - Left ventricle: The cavity size was normal. Systolic function was normal. The estimated ejection fraction was in the range of 55% to 60%. Wall motion was normal; there were no regional wall motion abnormalities. - Ventricular septum: The contour showed no diastolic flattening and no systolic flattening. - Right ventricle: The cavity size was moderately dilated. Wall thickness was normal. Systolic function appears visually reduced, although TAPSE is normal. - Pericardium, extracardiac: A trivial pericardial effusion was identified. A/P Problem List: (1) Acute respiratory failure requiring reintubation ICD Code: J96.00 Status: Acute (2) Acute alcohol intoxication ICD Code: F10.129 Status: Acute (3) Acute pulmonary embolism ICD Code: I26.99 Status: Acute Assessment and Plan Mr. Hutchinson is a 40-year-old male with who was admitted to the hospital after his family found patient unresponsive on 04/23/2016. On presentation his GCS score was 3. He was given Narcan but did not show any improvement. Patient was intubated and remained on mechanical ventilation until 04/25/2016. Patient's alcohol level was 356. CT pulmonary angiogram shows bilateral PE. Patient was started on heparin drip and later changed to Lovenox therapeutic dose. - Acute respiratory failure status post extubation on 04/25/2016. Tolerating room air. Passed walk test - Acute bilateral Pulmonary embolism likely related to recent long land trip. Negative family and personal hx - Patient is currently doing well. Check hypercoagulable panel pending at this time, patient to follow with PCP - Continue DuoNeb. - Discontinued Lovenox therapeutic dose. Started apixaban 10 mg twice a day 6 PM on 04/26/2016. - We'll continue apixaban at 10 mg twice a day and then 5 mg twice a day - Discussed with case management patient can get apixaban under patient's assistance (blue card) -fever 2/[address] IV vanco and zosyn and f/u Cx. Rpt CXR in 6 weeks - Alcohol abuse - Continue CIWA protocol. - Counselled - Continue folic acid, multivitamin, thiamine. - Tachycardia secondary to PE and pneumonia - Hypertension -Uncontrolled increased Cardizem to 90mg QID. - Echo shows preserved EF. - If BP remains elevated persistently, we may consider Amlodipine instead of Cardizem. - GERD - continue Protonix but switch to PO. Full code. Discharge Planning Not Stable for discharge Problem Qualifiers (1) Acute alcohol intoxication: Qualified Code: F10.129 - Acute alcohol intoxication, with unspecified complication Yoav Byrne MD Apr 29, 2016 10:29
[2016-04-30] VITALS (8 sets, daily range): BP systolic 132–168; BP diastolic 75–105; PULSE 96–119; RESP 18–24; TEMP 98.2–99.3; O2SAT 94–98
[2016-04-30] MEDS: PIPERACIL-TAZO 4.5 GM PREMIX 100 ML IV SCH ×2 (02:13→06:17)
[2016-04-30] MEDS: VANCOMYCIN INJ 1,500 MG in SODIUM CHLORID 0.9% 500 ML INJ 500 ML IV SCH ×2 (02:15→09:18)
[2016-04-30] MEDS: RESP: ALBUTEROL 2.5 MG/IPRATROPIUM 0.5 MG NEB (SCH) INH ×2 (03:30→10:24)
[2016-04-30] MEDS: CHLORHEXIDINE GLUCONATE 2 % 1 PACK (2 CLOTHS) TOP SCH (04:00)
[2016-04-30] MEDS: APIXABAN 5 MG TABLET PO SCH ×2 (05:38→18:00)
[2016-04-30] MEDS ORDERED: PHARMACY ORDERED LAB XX ONE ×2 (08:45→16:45)
[2016-04-30] MEDS: DOCUSATE SODIUM 50 MG/SENNA 8.6 MG TAB PO SCH ×2 (09:00→21:00)
[2016-04-30] MEDS: PANTOPRAZOLE SOD 40 MG DELAYED RELEASE TAB PO SCH (09:16)
[2016-04-30] MEDS: FOLIC ACID 1 MG TAB PO SCH (09:17)
[2016-04-30] MEDS: MULTIVITAMIN TAB PO SCH (09:17)
[2016-04-30] MEDS: SODIUM CHLORIDE 0.9% FLUSH 5 ML FLUSH IV FLUSH SCH ×2 (09:28→21:00)
[2016-04-30] MEDS: THIAMINE HCL 100 MG TAB PO SCH (09:28)
[2016-04-30] MEDS: DILTIAZEM HCL 90 MG TAB PO SCH ×4 (09:28→22:38)
[2016-04-30] MEDS: RESP: ALBUTEROL 2.5 MG/IPRATROPIUM 0.5 MG NEB (PRN) NEB ×2 (15:36→21:59)
--- NOTE | 2016-04-30 16:44 | HHI.PR ---
Subjective Remarks Follow-up for bilateral PE, HCAP. Patient is currently doing well. Denies any chest pain, shortness of breath, fever or chills. Not requiring any supplemental oxygen. Objective Vitals Vital Signs Date Time Temp Pulse Resp B/P Pulse Ox O2 Delivery O2 Flow Rate FiO2 04/30/16 16:00 98.3 113 20 149/97 96 04/30/16 12:00 99.1 101 20 134/75 98 04/30/16 10:27 97 21 04/30/16 08:00 96 Room Air 04/30/16 08:00 98.4 96 20 141/105 95 04/30/16 04:00 98.2 97 22 154/85 96 04/30/16 00:00 99.3 98 24 132/80 94 04/29/16 22:26 95 21 04/29/16 20:00 101 04/29/16 20:00 Room Air 04/29/16 20:00 98.1 104 24 141/90 96 I/O 04/29/16 04/29/16 04/29/16 04/30/16 04/30/16 04/30/16 07:00 15:00 23:00 07:00 15:00 23:00 Intake Total 569 ml 480 ml 1480 ml 1209 ml 480 ml Output Total 500 ml 800 ml 650 ml Balance 69 ml -320 ml 1480 ml 559 ml 480 ml Intake Oral 0 ml 480 ml 1480 ml 240 ml 480 ml IV Total 569 ml 969 ml Output Urine Total 500 ml 800 ml 650 ml # Voids 2 5 # Bowel Movements 0 2 1 Result Diagram: 04/29/16 0713 04/30/16 1157 Imaging Last Impressions Chest X-Ray 04/28/16 0000 Signed Impressions: Service Date/Time: Thursday, April 28, 2016 18:05 - CONCLUSION: 1. Focal consolidation right lung base most characteristic of bronchopneumonia. Lázaro Renae MD Head CT 04/23/16 1014 Signed Impressions: Service Date/Time: Saturday, April 23, 2016 10:44 - CONCLUSION: 1. Chronic sinusitis. 2. Otherwise, no acute intracranial process. Conor Vidal MD Lower Extremity Ultrasound 04/23/16 0000 Signed Impressions: Service Date/Time: Saturday, April 23, 2016 18:33 - CONCLUSION: Normal examination. Lázaro Renae MD CT Angiography 04/23/16 0000 Signed Impressions: Service Date/Time: Saturday, April 23, 2016 15:34 - CONCLUSION: 1. Acute pulmonary emboli within the right upper lobe posterior segmental branches and left lower lobe branches. 2. Cardiomegaly. Breezy Olivas MD Abdomen/Pelvis CT 04/23/16 0000 Signed Impressions: Service Date/Time: Saturday, April 23, 2016 15:34 - CONCLUSION: 1. Fatty liver. 2. Bilateral renal cysts. 3. Enlarged prostate. 4. Degenerative changes and scoliosis of the thoracolumbar spine. Breezy Olivas MD Objective Remarks GENERAL: Alert, NAD. SKIN: Warm and dry. HEAD: Normocephalic. EYES: No scleral icterus. No injection or drainage. NECK: Supple, trachea midline. No JVD or lymphadenopathy. CARDIOVASCULAR: Regular rate and rhythm without murmurs, gallops, or rubs. RESPIRATORY: Breath sounds equal bilaterally. No accessory muscle use. GASTROINTESTINAL: Abdomen soft, non-tender, nondistended. MUSCULOSKELETAL: No cyanosis, or edema. BACK: Nontender without obvious deformity. No CVA tenderness. Procedures Echo 04/24/2016 - Left ventricle: The cavity size was normal. Systolic function was normal. The estimated ejection fraction was in the range of 55% to 60%. Wall motion was normal; there were no regional wall motion abnormalities. - Ventricular septum: The contour showed no diastolic flattening and no systolic flattening. - Right ventricle: The cavity size was moderately dilated. Wall thickness was normal. Systolic function appears visually reduced, although TAPSE is normal. - Pericardium, extracardiac: A trivial pericardial effusion was identified. A/P Problem List: (1) Acute respiratory failure requiring reintubation ICD Code: J96.00 Status: Acute (2) Acute alcohol intoxication ICD Code: F10.129 Status: Acute (3) Acute pulmonary embolism ICD Code: I26.99 Status: Acute Assessment and Plan Mr. Hutchinson is a 40-year-old male with who was admitted to the hospital after his family found patient unresponsive on 04/23/2016. On presentation his GCS score was 3. He was given Narcan but did not show any improvement. Patient was intubated and remained on mechanical ventilation until 04/25/2016. Patient's alcohol level was 356. CT pulmonary angiogram shows bilateral PE. Patient was started on heparin drip and later changed to Lovenox therapeutic dose. - Acute respiratory failure status post extubation on 04/25/2016. Tolerating room air. Passed walk test - Acute bilateral Pulmonary embolism likely related to recent long land trip. Negative family and personal hx - Patient is currently doing well. Check hypercoagulable panel pending at this time, patient to follow with PCP - Continue DuoNeb. - Discontinued Lovenox therapeutic dose. Continue apixaban 10 mg twice a day 6 PM on 04/26/2016. - We'll continue apixaban at 10 mg twice a day and then 5 mg twice a day - Discussed with case management patient can get apixaban under patient's assistance (blue card) - Healthcare associated pneumonia with severe sepsis. - Continue IV vanco and zosyn and f/u Cx. Rpt CXR in 6 weeks - clinically much improved. We will d/c Vanc/Zosyn and start patient on Levaquin - Diarrhea - Will check C. Diff PCR. - Alcohol abuse - Continue CIWA protocol. - Counselled - Continue folic acid, multivitamin, thiamine. - Tachycardia secondary to PE and pneumonia - Hypertension - Uncontrolled increased Cardizem to 90mg QID. - Echo shows preserved EF. - If BP remains elevated persistently, we may consider Amlodipine instead of Cardizem. - GERD - continue Protonix but switch to PO. Full code. Apixaban. Problem Qualifiers (1) Acute alcohol intoxication: Qualified Code: F10.129 - Acute alcohol intoxication, with unspecified complication Annette Puente DO Apr 30, 2016 4:44 pm
[2016-04-30] MEDS: LEVOFLOXACIN 750 MG TAB PO SCH (17:00)
[2016-05-01 00:12] VITALS: O2SAT 96
[2016-05-01 01:57] VITALS: BP 152/97; PULSE 118; RESP 18; TEMP 98; O2SAT 96
[2016-05-01] MEDS: CHLORHEXIDINE GLUCONATE 2 % 1 PACK (2 CLOTHS) TOP SCH (03:59)
[2016-05-01] MEDS: APIXABAN 5 MG TABLET PO SCH (05:58)
[2016-05-01 06:33] VITALS: BP 148/90; PULSE 95; RESP 18; TEMP 98.3; O2SAT 98
[2016-05-01 08:00] VITALS: BP 143/88; PULSE 92; RESP 16; TEMP 98.2; O2SAT 97
[2016-05-01] MEDS: DOCUSATE SODIUM 50 MG/SENNA 8.6 MG TAB PO SCH (09:00)
[2016-05-01] MEDS: FOLIC ACID 1 MG TAB PO SCH (09:41)
[2016-05-01] MEDS: PANTOPRAZOLE SOD 40 MG DELAYED RELEASE TAB PO SCH (09:41)
[2016-05-01] MEDS: THIAMINE HCL 100 MG TAB PO SCH (09:41)
[2016-05-01] MEDS: DILTIAZEM HCL 90 MG TAB PO SCH ×2 (09:41→12:36)
[2016-05-01] MEDS: MULTIVITAMIN TAB PO SCH (09:41)
[2016-05-01 12:00] VITALS: BP 155/101; PULSE 103; RESP 16; TEMP 96.5; O2SAT 98
[2016-05-01 12:40] LABS: C. DIFF EPI 027 PRESUMPTIVE NEGATIVE (NEGATIVE); C. DIFF TOXIN PCR NEGATIVE (NEGATIVE)
[2016-05-01] MEDS ORDERED: LEVA750T PO (15:59)
[2016-05-01 16:00] VITALS: BP 167/93; PULSE 92; RESP 18; TEMP 98.1; O2SAT 98
[2016-05-01] MEDS ORDERED: AMLO10TA2 PO (16:03)
[2016-05-01] MEDS ORDERED: CARV3.12 PO (16:03)
--- NOTE | 2016-05-01 16:05 | HHI.DS ---
Discharge Summary Admission Date Apr 23, 2016 at 11:42 am Discharge Date: May 01, 2016 Admitting Diagnosis unresponsive, respiratory failure, acute alcohol intoxication, metab (1) Acute respiratory failure requiring reintubation ICD Code: J96.00 Diagnosis: Principal (2) Acute alcohol intoxication ICD Code: F10.129 Diagnosis: Principal (3) Acute pulmonary embolism ICD Code: I26.99 Diagnosis: Principal Procedures Echo 04/24/2016 - Left ventricle: The cavity size was normal. Systolic function was normal. The estimated ejection fraction was in the range of 55% to 60%. Wall motion was normal; there were no regional wall motion abnormalities. - Ventricular septum: The contour showed no diastolic flattening and no systolic flattening. - Right ventricle: The cavity size was moderately dilated. Wall thickness was normal. Systolic function appears visually reduced, although TAPSE is normal. - Pericardium, extracardiac: A trivial pericardial effusion was identified. Brief History - From Admission The patient is a 40-year-old male without significant past medical history who was brought into [facility] ED after he was found by his family members this morning unresponsive. They called 911 and upon arrival of EMS the patient had a GCS score of 3. He was subsequently given Narcan 1 mg without any response. CBC/BMP: 04/29/16 0713 04/30/16 1157 Significant Findings Laboratory Tests Test 04/29/16 04/30/16 07:13 11:57 Neutrophils (%) (Auto) 74.0 % (16.0-70.0) Monocytes (%) (Auto) 9.9 % (0.0-8.0) Neutrophils # (Auto) 8.1 TH/MM3 (1.8-7.7) Monocytes # (Auto) 1.1 TH/MM3 (0-0.9) Sodium Level 133 MEQ/L (136-145) Vancomycin Level Trough 45.4 MCG/ML (5.0-10.0) Imaging Last Impressions Chest X-Ray 04/28/16 0000 Signed Impressions: Service Date/Time: Thursday, April 28, 2016 18:05 - CONCLUSION: 1. Focal consolidation right lung base most characteristic of bronchopneumonia. Lázaro Renae MD Head CT 04/23/16 1014 Signed Impressions: Service Date/Time: Saturday, April 23, 2016 10:44 - CONCLUSION: 1. Chronic sinusitis. 2. Otherwise, no acute intracranial process. Conor Vidal MD Lower Extremity Ultrasound 04/23/16 0000 Signed Impressions: Service Date/Time: Saturday, April 23, 2016 18:33 - CONCLUSION: Normal examination. Lázaro Renae MD CT Angiography 04/23/16 0000 Signed Impressions: Service Date/Time: Saturday, April 23, 2016 15:34 - CONCLUSION: 1. Acute pulmonary emboli within the right upper lobe posterior segmental branches and left lower lobe branches. 2. Cardiomegaly. Breezy Olivas MD Abdomen/Pelvis CT 04/23/16 0000 Signed Impressions: Service Date/Time: Saturday, April 23, 2016 15:34 - CONCLUSION: 1. Fatty liver. 2. Bilateral renal cysts. 3. Enlarged prostate. 4. Degenerative changes and scoliosis of the thoracolumbar spine. Breezy Olivas MD PE at Discharge GENERAL: Alert, NAD. SKIN: Warm and dry. HEAD: Normocephalic. EYES: No scleral icterus. No injection or drainage. NECK: Supple, trachea midline. No JVD or lymphadenopathy. CARDIOVASCULAR: Regular rate and rhythm without murmurs, gallops, or rubs. RESPIRATORY: Breath sounds equal bilaterally. No accessory muscle use. GASTROINTESTINAL: Abdomen soft, non-tender, nondistended. MUSCULOSKELETAL: No cyanosis, or edema. BACK: Nontender without obvious deformity. No CVA tenderness. Pt update on day of discharge Patient is currently doing well. Denies any shortness of breath, chest pain, fever or chills. He inquires about diet habits for his overall health. Discussed about heart healthy diet including fresh fruits and vegetables. Also emphasized importance of maintaining low-salt diet. Hospital Course Mr. Hutchinson is a 40-year-old male with who was admitted to the hospital after his family found patient unresponsive on 04/23/2016. On presentation his GCS score was 3. He was given Narcan but did not show any improvement. Patient was intubated and remained on mechanical ventilation until 04/25/2016. Patient's alcohol level was 356. CT pulmonary angiogram shows bilateral PE. Patient was started on heparin drip and later changed to Lovenox therapeutic dose. - Acute respiratory failure status post extubation on 04/25/2016. Tolerating room air. Passed walk test - Acute bilateral Pulmonary embolism likely related to recent long land trip. Negative family and personal hx - Patient is currently doing well. hypercoagulable panel can be followed up with PCP. - Continue DuoNeb while in the hospital. Patient is not requiring submental oxygen. - Patient received apixaban 10 mg twice a day for 7 days. - We'll continue apixaban 5 mg twice upon discharge today. - Healthcare associated pneumonia with severe sepsis. - Continue IV vanco and zosyn and f/u Cx. Rpt CXR in 6 weeks - clinically much improved. Patient received Vanc/Zosyn - Continue Levaquin for 4 more days. - Diarrhea - C. Diff negative. - Alcohol abuse - Counselled extensively. Continue Thiamine. - Tachycardia secondary to PE and pneumonia - Hypertension - We'll discharge patient on amlodipine 10 mg daily, carvedilol 3.125 mg 3 times a day. - PCP to adjust medications - GERD - can take zantact OTC. Discussed extensively with patient and case management. Pt Condition on Discharge: Stable Discharge Disposition: Discharge Home Discharge Time: > 30 minutes Discharge Instructions DIET: Follow Instructions for: Heart Healthy Diet Activities you can perform: Regular-No Restrictions Activities to Avoid: Driving Follow up Referrals: PCP Follow-up - 1 Week New Orders: X-RAY CHEST PA & LAT - 6 Weeks New Medications: Amlodipine (Amlodipine) 10 Mg Tab 10 MG PO DAILY Blood Pressure Management #30 Ref 0 TAB Carvedilol (Carvedilol) 3.125 Mg Tab 3.125 MG PO BID #60 Ref 0 TAB Levofloxacin (Levaquin) 750 Mg Tab 750 MG PO DAILY Infection #4 Ref 0 TAB Apixaban (Eliquis) 5 Mg Tab 5 MG PO Q12H start 05/01 Prevent Blood Clot #60 TAB Thiamine (Vitamin B-1) 100 Mg Tab 100 MG PO DAILY Alcohol Detox #30 TAB Annette Puente DO May 01, 2016 16:05
[2016-05-01] MEDS: LEVOFLOXACIN 750 MG TAB PO SCH (17:00)
[2016-05-01] MEDS ORDERED: APIXABAN 5 MG TABLET PO SCH (18:00)
[2016-05-03 03:53] LABS: THROMBIN TIME FOR LA 19 sec (13-19)
[2016-05-04 13:53] LABS: PHOSPHATIDYLSERINE AB IGA LESS THAN 20.0 U/mL (()); PHOSPHATIDYLSERINE AB IGM LESS THAN 25.0 U/mL (())
[2016-05-08] MEDS ORDERED: AMLO10TA2 PO (16:08)
[2016-05-08] MEDS ORDERED: APIX5TAB PO (16:08)
[2016-05-08] MEDS ORDERED: CARV3.12 PO (16:09)
[2016-06-14] MEDS ORDERED: CARV3.12 PO (15:51)
[2016-06-14] MEDS ORDERED: APIX5TAB PO (15:51)
[2016-06-14] MEDS ORDERED: AMLO10TA2 PO (15:51)
== END 2016-05-01 17:30 | disposition home or self-care (01) | DRG 208 ==
LOC: NEPE 10:06 → NEDA 11:42 → HIMN 16:50 → N04B 04-27 15:51
PROVIDERS: ADMIT Hospitalist; ATTEND Hospitalist
PROC: 5A1945Z Respiratory Ventilation, 24-96 Consecutive Hours (ICD-10-PCS; principal; 2016-04-23)
PROC: 0BH17EZ Insertion of Endotracheal Airway into Trachea, Via Natural or Artificial Opening (ICD-10-PCS; 2016-04-23)
DX: J96.01 Acute respiratory failure with hypoxia (principal); I26.99 Other pulmonary embolism without acute cor pulmonale; R65.20 Severe sepsis without septic shock; J18.9 Pneumonia, unspecified organism; A41.9 Sepsis, unspecified organism; E87.2 Acidosis; F10.229 Alcohol dependence with intoxication, unspecified; R40.2430 Glasgow coma scale score 3-8, unspecified time; J32.9 Chronic sinusitis, unspecified; I10 Essential (primary) hypertension; K21.9 Gastro-esophageal reflux disease without esophagitis; R19.7 Diarrhea, unspecified; F12.90 Cannabis use, unspecified, uncomplicated; F17.200 Nicotine dependence, unspecified, uncomplicated; Y90.8 Blood alcohol level of 240 mg/100 ml or more; Y95 Nosocomial condition; Z28.82 Immunization not carried out because of caregiver refusal
CPT/HCPCS: 31500; 36600; 51702; 70450; 71010; 71275; 74177; 76937; 80048; 80053; 80202; 80307; 80320; 80329; 81001; 81240; 81241; 81291; 82550; 82552; 82565; 82805; 82948; 83090; 83605; 83735; 84100; 84443; 84484; 85007; 85025; 85027; 85240; 85300; 85303; 85306; 85307; 85597; 85598; 85610; 85613; 85670; 85730; 86146; 86147; 86148; 87040; 87493; 87641; 93005; 93306; 93970; 94002; 94003; 94620; 94640; 94664; 96360; 96365; C9113; G0480; J0360; J1644; J1650; J2060; J2543; J3010; J3370; J7030; J7040; J7042; Q9967

== ENCOUNTER → 2016-06-15 | Outpatient (CLI) | payer OTHER ==
[~2016-06-15] MED LIST changes: +AMLO10TA2 PO; +APIX5TAB PO; +CARV3.12 PO; -IBUP-238 PO; -LORT5TAB PO; +VITA100T2 PO; -Z.0.NO CURRENT MEDS
--- NOTE | 2016-06-15 15:38 | RADRPT ---
EXAM DATE/TIME: 06/15/2016 15:14 [place] COMPARISON: No previous studies available for comparison. INDICATIONS : Follow up cxr to evaluate for pneumonia. MEDICAL HISTORY : Blood clots in lungs. SURGICAL HISTORY : None. ENCOUNTER: Initial ACUITY: 1 day PAIN SCORE: 0/10 LOCATION: chest FINDINGS: PA and lateral views of the chest demonstrate the lungs to be symmetrically aerated without evidence of mass, infiltrate or effusion. The cardiomediastinal contours are unremarkable. Osseous structure s are intact. CONCLUSION: No acute disease. Paddy Goldstein MD FACR on June 15, 2016 at 15:36 Board Certified Radiologist. This report was verified electronically.
== END ==
LOC: HRAD 14:52
PROVIDERS: ATTEND Internal Medicine
DX: Z09 Encounter for follow-up examination after completed treatment for conditions other than malignant neoplasm (principal)
CPT/HCPCS: 71020